=== PATIENT | female | born 1960 | race Caucasian/White ===

== ENCOUNTER 2022-07-21 13:25 | Emergency (ER) | payer BC, SELFPAY ==
[2022-07-21 13:41] VITALS: BP 150/93; PULSE 74; RESP 16; TEMP 36.6; O2SAT 99
[2022-07-21 14:00] VITALS: BP 148/61; PULSE 85; O2SAT 90
[2022-07-21 14:30] VITALS: BP 150/65
[2022-07-21 15:00] VITALS: BP 145/62; PULSE 83; RESP 18; O2SAT 96
--- NOTE | 2022-07-21 15:55 | CRLHL7_ITS ---
For Patients: As a result of the Century Cures Act, medical imaging exams and procedure reports are released immediately into your electronic medical record. You may view this report before your referring provider. If you have questions, please contact your health care provider. INDICATION: Left-sided abdominal pain COMPARISON: None TECHNIQUE: CT examination of the abdomen and pelvis was performed following the uneventful intravenous administration of 77 cc of Isovue 370. Thin section axial images were obtained from the lung bases through the pubic symphysis. Oral contrast was not administered. Please note that all CT scans at this facility use dose modulation, iterative reconstruction, and/or weight-based dosing when appropriate to reduce radiation dose to as low as reasonably achievable. FINDINGS: LUNG BASES: The lung bases as visualized appear normal.The heart size is normal at the lung bases. LIVER/BILIARY SYSTEM:The liver is normal in size and configuration. There is no focal mass and there is no intra- or extra hepatic biliary ductal dilatation.Hepatic steatosis with geographic areas of sparing. Gallbladder surgically absent. ADRENALS: Normal KIDNEYS, URETERS and BLADDER:The kidneys appear normal. No visible mass, calculus or hydronephrosis. The ureters and bladder as visualized appear normal. SPLEEN:Normal appearance. PANCREAS: Appears normal. RETROPERITONEUM and MESENTERY: There is no mass, adenopathy or aortic aneurysm. Atherosclerotic vascular calcification GASTROINTESTINAL SYSTEM: There is no evidence of diverticulitis, colitis, mechanical obstruction, or appendicitis. The small bowel as visualized appears normal.Scattered diverticulosis. Mild thickening of the rectum may be related to mild proctitis. PELVIS: No mass, adenopathy or free fluid. OSSEOUS STRUCTURES and ABDOMINAL WALL: There is an age-appropriate appearance of the osseous structures.No significant abdominal wall defect. OTHER: No free fluid or free air. IMPRESSION: Mild thickening of the rectum which may be related to proctitis. Otherwise, no specific visible etiology for pain. Please note that all CT scans at this facility use dose modulation, iterative reconstruction, and/or weight-based dosing when appropriate to reduce radiation dose to as low as reasonably achievable. Dictated by Dayne Matamoros MD @ 07/21/2022 5:31:24 PM (Electronically Signed)
[2022-07-21 16:14] LABS: Appearance Urine Clear (Clear); Bilirubin Urine Negative (Negative); Blood Urine Trace-lysed (Negative); Color Urine Yellow (Yellow); Glucose Urine Negative (Negative); Ketones Urine Negative (Negative); Leukocyte Esterase Urine Negative (Negative); Nitrite Urine Negative (Negative); Protein Urine Negative (Negative); Urobilinogen Urine 0.2 (0.2-1.0)
[2022-07-21] MEDS: KETOROLAC 15 MG/ML inj IVP (16:18)
[2022-07-21 16:28] LABS: Basophils Absolute Auto 0.04 K/uL (0.00-0.30); Basophils Percent Auto 0.4 % (0.0-3.0); Eosinophils Absolute Auto 0.03 K/uL (0.00-0.50); Eosinophils Percent Auto 0.3 % (0.0-7.0); Hematocrit 42.3 % (33.0-51.0); Hemoglobin* 14.6 gm/dL (12.0-16.0); Immature Granulocytes Abs Auto 0.02 K/uL (0.00-0.30); Lymphocytes Absolute Auto 3.31 K/uL (0.90-2.90); Lymphocytes Percent Auto 32.6 % (20-44); Mean Corpuscular HGB Conc 35 gm/dL (32-36); Mean Corpuscular Hemoglobin 31 pg (26-34); Mean Corpuscular Volume 91 fL (80-100); Monocytes Percent Auto 6.1 % (0.0-11.0); Neutrophils Absolute Auto 6.13 K/uL (1.7-7.0); Neutrophils Percent Auto 60.4 % (42.0-72.0); Platelet Count* 289 K/uL (140-440); RDW Coefficient of Variation % 12.8 % (11.5-15.5); Red Blood Count 4.65 m/uL (4.00-5.20); White Blood Count* 10.15 K/uL (4.50-11.00)
[2022-07-21 16:29] LABS: RBC Urine 0-2 (0-2); WBC Urine 0-2 (0-5)
[2022-07-21 16:33] LABS: Slide Review Reflex No
[2022-07-21 16:46] LABS: Chloride* 100 mmol/L (96-114)
[2022-07-21 16:47] LABS: Potassium* 3.9 mmol/L (3.6-5.1); Sodium* 135 mmol/L (135-149)
[2022-07-21 16:49] LABS: Creatinine* 0.6 mg/dL (0.5-1.5); Estimated Glomerular Filt Rate 101 ml/min
[2022-07-21 16:50] LABS: Alanine Aminotransferase* 20 U/L (4-35); Alkaline Phosphatase* 104 U/L (40-150); Aspartate Amino Transferase* 32 U/L (12-35); Bilirubin Direct* 0.3 mg/dL (0.0-0.5); Bilirubin Total* 0.8 mg/dL (0.1-1.5); Blood Urea Nitrogen* 15 mg/dL (7-30); Calcium* 9.6 mg/dL (8.4-10.6); Carbon Dioxide* 26 mmol/L (20-32); Glucose* 102 mg/dL (60-115); Lipase* 80 U/L (23-300); Total Protein* 8.7 g/dL (6.0-8.3)
[2022-07-21 16:57] LABS: C Reactive Protein* < 0.5 mg/dL (0.5-1.0)
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
--- NOTE | 2022-07-21 17:23 | ED.NURSE ---
Report given to APOLONIA Hollingsworth.
== END 2022-07-21 18:30 | disposition home or self-care (01) ==
PROVIDERS: Emergency Provider Emergency Medicine
DX: R10.9 Unspecified abdominal pain (principal)
CPT/HCPCS: 36415; 74177; 80048; 80076; 81001; 83690; 84484; 85025; 86140; 93005; 96374; 99284; 99285; J1885; Q9967

== ENCOUNTER 2022-07-30 21:01 | Emergency (ER) | payer BC, SELFPAY ==
[2022-07-30 21:12] VITALS: BP 167/83; PULSE 75; RESP 14; TEMP 36.5; O2SAT 98; BMI 31.3
--- NOTE | 2022-07-30 21:30 | CRLHL7_ITS ---
For Patients: As a result of the Century Cures Act, medical imaging exams and procedure reports are released immediately into your electronic medical record. You may view this report before your referring provider. If you have questions, please contact your health care provider. INDICATION: Cough. TECHNIQUE: Chest 1 views. COMPARISON: None. FINDINGS: Cardiovascular and mediastinum: Heart size and vasculature are normal in caliber and appearance. Lungs and pleural spaces: Lungs are clear. No sign of infiltrate or mass. No sign of pleural effusion. No pneumothorax. Bones and soft tissues: No significant findings. IMPRESSION: No acute or significant findings. Dictated by Matthew Zee MD @ 07/30/2022 9:57:01 PM (Electronically Signed)
--- NOTE | 2022-07-30 21:52 | ED_ITS ---
HPI - General Adult General Chief complaint: Cough Stated complaint: Cough, joint pain Time Seen by Provider: 07/30/22 21:14 History of Present Illness HPI narrative: Pt is a 62 year old woman with hypertension and GERD who comes in with a 3 day history of cough. She has only had one COVD vaccination. Pt has had no sick contacts. No fever or chills. No SOB. She is eating and drinking normally. No other significant complaints. No chest pain. Related Data Home Medications Medication Instructions Recorded Confirmed lisinopril 5 mg tablet 5 mg PO DAILY 07/21/22 07/21/22 omeprazole 20 mg capsule,delayed 20 mg PO DAILY PRN 07/21/22 07/21/22 release Previous Rx's Medication Instructions Recorded sucralfate 100 mg/mL oral 10 ml PO QID #414 mL 07/21/22 suspension (Carafate) Allergies Allergy/AdvReac Type Severity Reaction Status Date / Time ibuprofen AdvReac Mild Verified 07/21/22 13:48 Review of Systems Status of ROS: Reports: 10 or more systems reviewed and unremarkable except as noted in History and below [facility] Medical History (Updated 07/30/22 @ 21:57 by Kel Addison MD) GERD (gastroesophageal reflux disease) Hypertension Social History Smoking Status: Never smoker How often do you have a drink containing alcohol: never AUDIT-C Alcohol total score: 0 Non-prescribed substance use: denies use Exam Narrative: Exam Narrative: EXAM GENERAL: Patient appears comfortable and well. EYES: No scleral icterus. ENT: Tympanic membranes and oropharynx normal. THYROID: no thyroid nodules or thyromegaly. LYMPH: No supraclavicular or cervical lymphadenopathy. SKIN: Visible skin seen during exam normal or with benign process only. EXT: No dependent lower extremity pedal edema. HEART: Regular rate and rhythm with no murmurs, rubs, or gallops. LUNGS: Clear to auscultation bilaterally with no crackles or wheezes. ABD: Soft, non tender, non distended. PSYCH: Good eye contact, speech is not pressured. Const: Vital Signs, click to edit/add: Vital Signs - 24 hr 07/30/22 21:12 Temperature 97.7 F Pulse Rate [Pulse Oximeter] 75 Respiratory Rate 14 Blood Pressure [Ri ght Upper Arm] 167/83 H Pulse Oximetry 98 Oxygen Delivery Me thod Room Air Course Course Hospital Course: Pt seen and examined Vital Signs Vital signs: Initial Vital Signs Temperature 97.7 F 07/30/22 21:12 Temperature Source Temporal Artery Scan 07/30/22 21:12 Pulse Rate 75 07/30/22 21:12 Pulse Rhythm 07/30/22 21:12 Respiratory Rate 14 07/30/22 21:12 Blood Pressure 167/83 H 07/30/22 21:12 Blood Pressure Mean 111 07/30/22 21:12 Blood Pressure Position Supine 07/30/22 21:12 Pulse Oximetry 98 07/30/22 21:12 Oxygen Delivery Method 07/30/22 21:12 Vital Signs Temperature 97.7 F 07/30/22 21:12 Pulse Rate 75 07/30/22 21:12 Respiratory Rate 14 07/30/22 21:12 Blood Pressure 167/83 H 07/30/22 21:12 Pulse Oximetry 98 07/30/22 21:12 Oxygen Delivery Method 07/30/22 21:12 Temperature 97.7 F 07/30/22 21:12 Pulse Rate 75 07/30/22 21:12 Respiratory Rate 14 07/30/22 21:12 Blood Pressure 167/83 H 07/30/22 21:12 Pulse Oximetry 98 07/30/22 21:12 Oxygen Delivery Method 07/30/22 21:12 Medical Decision Making MDM Narrative Medical decision making narrative: Pt presents with cough and a normal chest x ray and good vital signs including oxygen saturation. Pt otherwise feeling fine. Pt not interested in symptomatic care alone any further. Will treat with Z pack as directed and albuterol as needed. COVID testing pending. Differential Diagnosis Differential Diagnosis: Asthma, bronchitis, COVID, Pneumonia, URI Discharge Plan Discharge Clinical Impression: Bronchitis Patient Disposition: Home, Self-Care Condition: Stable Instructions: Acute Bronchitis (ED) Additional Instructions: Zithromax and albuterol as needed Activity Level: No Restrictions Discharge Diet: Regular Prescriptions: No Action lisinopril 5 mg tablet 5 mg PO DAILY omeprazole 20 mg capsule,delayed release(DR/EC) 20 mg PO DAILY PRN sucralfate [Carafate] 100 mg/mL suspension 10 ml PO QID Qty: 414 2RF Rx Instructions: swish in mouth and swallow; use after food/drink Follow Up/Referrals: Provider,Not a Local [Primary Care Provider] - Stand Alone Forms: [employer] Info Instructions
[2022-07-30 22:13] LABS: SARS PCR* Negative SARS-CoV-2 (Negative)
[2022-07-30 22:46] VITALS: BP 167/83; PULSE 75; RESP 14; TEMP 36.5
== END 2022-07-30 22:47 | disposition home or self-care (01) ==
PROVIDERS: Emergency Provider Internal Medicine
DX: J40 Bronchitis, not specified as acute or chronic (principal)
CPT/HCPCS: 71045; 87635; 99283; 99284

== ENCOUNTER 2022-10-10 11:51 | Outpatient (CLI) | payer BC, SELFPAY | END 2022-10-10 11:52 | disposition home or self-care (01) | LOC: AMB 10-21 12:25 | PROVIDERS: Visit Provider Family Medicine | DX: R07.89 Other chest pain (principal) | CPT/HCPCS: A0998 ==

== ENCOUNTER 2022-10-10 11:53 | Outpatient (CLI) | payer BC, SELFPAY | END 2022-10-10 11:54 | disposition home or self-care (01) | LOC: AMB 10-21 15:19 | PROVIDERS: Visit Provider Family Medicine | DX: R20.0 Anesthesia of skin (principal) | CPT/HCPCS: A0425; A0427 ==

== ENCOUNTER 2022-10-10 12:27 | Emergency (ER) | payer BC, SELFPAY ==
[2022-10-10] VITALS (9 sets, daily range): BP systolic 122–183; BP diastolic 63–112; PULSE 66–77; RESP 22; TEMP 36.7; O2SAT 93–98; BMI 35.2
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
--- NOTE | 2022-10-10 13:16 | ED.NURSE ---
[facility] LE contacted per Pt and MD request to file report. Daughter's cell phone number: [phone] provided to LE to speak with Pt/daughter and are aware an cylinder block hole reliner will be needed.
[2022-10-10] MEDS: LORazepam 2 MG/ML inj 0.5 MG IVP (13:23)
== END 2022-10-10 16:27 | disposition home or self-care (01) ==
PROVIDERS: Emergency Provider Family Medicine
DX: F41.9 Anxiety disorder, unspecified (principal)
CPT/HCPCS: 96374; 99283; 99284; J2060

== ENCOUNTER 2023-10-31 16:07 | Emergency (ER) | payer BC, SELFPAY ==
[2023-10-31] VITALS (11 sets, daily range): BP systolic 126–170; BP diastolic 69–94; PULSE 61–72; RESP 12–15; TEMP 36.3; O2SAT 93–99; BMI 31.3
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
--- NOTE | 2023-10-31 17:19 | CRLHL7_ITS ---
For Patients: As a result of the Century Cures Act, medical imaging exams and procedure reports are released immediately into your electronic medical record. You may view this report before your referring provider. If you have questions, please contact your health care provider. INDICATION: Left-sided chest pain TECHNIQUE: Chest 2 view. Permanently recorded images are archived. COMPARISON: 07/30/2022 FINDINGS: Cardiovascular and mediastinum: Normal heart size. Mildly atherosclerotic thoracic aorta. Lungs and pleural spaces: The lungs are clear. No pleural effusion or pneumothorax. Bones and soft tissues: Cholecystectomy clips. Otherwise, unremarkable for age. IMPRESSION: No evidence of an acute pulmonary process. Dictated by Shivam Andrade MD @ 10/31/2023 6:54:42 PM (Electronically Signed)
[2023-10-31 17:57] LABS: Lactate* 1.9 mmol/L (0.5-1.9)
[2023-10-31 18:16] LABS: Albumin* 4.8 g/dL (3.3-5.0); Basophils Absolute Auto 0.03 K/uL (0.00-0.30); Basophils Percent Auto 0.3 % (0.0-3.0); Chloride* 101 mmol/L (96-114); Eosinophils Absolute Auto 0.01 K/uL (0.00-0.50); Eosinophils Percent Auto 0.1 % (0.0-7.0); Hematocrit 43.7 % (33.0-51.0); Hemoglobin* 14.5 gm/dL (12.0-16.0); Immature Granulocytes Abs Auto 0.03 K/uL (0.00-0.30); Immature Granulocytes Pct Auto 0.3 %; Lymphocytes Absolute Auto 3.43 K/uL (0.90-2.90); Lymphocytes Percent Auto 37.1 % (20-44); Mean Corpuscular HGB Conc 33 gm/dL (32-36); Mean Corpuscular Hemoglobin 31 pg (26-34); Mean Corpuscular Volume 94 fL (80-100); Monocytes Percent Auto 5.1 % (0.0-11.0); Neutrophils Absolute Auto 5.27 K/uL (1.7-7.0); Neutrophils Percent Auto 57.1 % (42.0-72.0); Platelet Count* 343 K/uL (140-440); RDW Coefficient of Variation % 12.7 % (11.5-15.5); Red Blood Count 4.67 m/uL (4.00-5.20); White Blood Count* 9.24 K/uL (4.50-11.00)
--- NOTE | 2023-10-31 18:16 | CRLHL7_ITS ---
For Patients: As a result of the Century Cures Act, medical imaging exams and procedure reports are released immediately into your electronic medical record. You may view this report before your referring provider. If you have questions, please contact your health care provider. INDICATION: Left leg pain. TECHNIQUE: Ultrasound venous duplex lower left extremity. Compression venous exam was performed using richmond-scale, color Doppler, and spectral Doppler analysis. COMPARISON: None. FINDINGS: Common Femoral Vein: Patent and compressible. Deep Femoral Vein: Patent. Greater Saphenous Vein: Patent. Superficial Femoral Vein: Patent and compressible. Popliteal Vein: Patent and compressible. Posterior Tibial Veins: Patent and compressible. Peroneal Veins: Patent and compressible. Contralateral Right Common Femoral Vein: Patent and compressible. IMPRESSION: No evidence of deep venous thrombosis in the left lower extremity. Dictated by Keegan Rios MD @ 10/31/2023 8:44:28 PM (Electronically Signed)
[2023-10-31 18:17] LABS: Potassium* 3.8 mmol/L (3.6-5.1); Sodium* 138 mmol/L (135-149)
[2023-10-31 18:19] LABS: Bilirubin Total* 0.6 mg/dL (0.1-1.5); Creatinine* 0.7 mg/dL (0.5-1.5); D Dimer Quantitative* 0.29 ug/ml (0.00-0.50); Est. Creatinine Clearance* 61.85; Estimated Glomerular Filt Rate 97 ml/min
[2023-10-31 18:20] LABS: Alanine Aminotransferase* 23 U/L (4-35); Alkaline Phosphatase* 95 U/L (40-150); Anion Gap 11 mEq/L (7-15); Aspartate Amino Transferase* 31 U/L (12-35); Blood Urea Nitrogen* 15 mg/dL (7-30); Calcium* 9.6 mg/dL (8.4-10.6); Carbon Dioxide* 26 mmol/L (20-32); Glucose* 107 mg/dL (60-115); Total Protein* 8.4 g/dL (6.0-8.3)
[2023-10-31 18:21] LABS: Slide Review Reflex No
[2023-10-31 18:23] LABS: C Reactive Protein* 0.6 mg/dL (0.5-1.0)
[2023-10-31 18:37] LABS: NT Pro B Type NatriureticPept* 29 pg/mL; Troponin I* < 0.01 ng/mL (0.01-0.04)
--- NOTE | 2023-10-31 20:09 | ED.NURSE ---
Report given to APOLONIA Armstrong.
--- NOTE | 2023-10-31 21:00 | ED.NURSE ---
used and doctor of optometry ([employer]) Sinhala speaking to go over discharge instructions. patient is having pain and wondering if able to have some for pain. Medications were sent to pharmacy to car pick up driver and understood how to take.
== END 2023-10-31 21:20 | disposition home or self-care (01) ==
PROVIDERS: Emergency Provider Family Medicine
DX: R07.89 Other chest pain (principal); H92.02 Otalgia, left ear
CPT/HCPCS: 36415; 71046; 80053; 83605; 83880; 84484; 85025; 85379; 86140; 93005; 93971; 94761; 99284; 99285

== ENCOUNTER 2024-01-18 10:58 | Emergency (ER) | payer BC, SELFPAY ==
[2024-01-18 11:22] VITALS: BP 163/80; PULSE 66; RESP 18; TEMP 36.6; O2SAT 98; BMI 25.7
[2024-01-18 12:03] LABS: Strep A DNA Probe* NOT DETECTED (Not Detectd)
[2024-01-18 12:16] LABS: PCR FLU A Negative PCR FLU A (Negative); PCR FLU B Negative PCR FLU B (Negative); PCR RSV Negative PCR RSV (Negative); SARS PCR* Negative SARS-CoV-2 (Negative)
--- NOTE | 2024-01-18 12:53 | ED_ITS ---
HPI - General Adult General Chief complaint: Cough Stated complaint: Cough / sore throat Time Seen by Provider: 01/18/24 12:36 History of Present Illness HPI narrative: This 63-year-old female comes in reporting persistent upper respiratory symptoms including cough and now has sore throat and bilateral ear pain. She does not report any fevers. She comes in with normal vital signs. She states that she has had a cough for about a month. Related Data Home Medications Medication Instructions Recorded Confirmed lisinopril 5 mg tablet 5 mg PO DAILY 07/21/22 01/18/24 omeprazole 20 mg capsule,delayed 20 mg PO DAILY PRN 07/21/22 10/31/23 release amitriptyline 25 mg tablet 25 mg PO QPM 01/18/24 01/18/24 cholecalciferol (vitamin D3) 50 50 mcg PO DAILY 01/18/24 01/18/24 mcg (2,000 unit) tablet Previous Rx's Medication Instructions Recorded omeprazole 40 mg capsule,delayed 40 mg PO DAILY #14 caps 10/31/23 release tramadol 50 mg tablet 50 mg PO QHS PRN pain #6 tabs 10/31/23 acetaminophen 300 mg-codeine 30 mg 1 tab PO Q6H PRN pain #20 tabs 01/18/24 tablet amoxicillin 500 mg capsule 500 mg PO TID 10 days #21 caps 01/18/24 Allergies Allergy/AdvReac Type Severity Reaction Status Date / Time ibuprofen AdvReac Mild Verified 01/18/24 11:26 Review of Systems Status of ROS: Reports: 10 or more systems reviewed and unremarkable except as noted in History and below Narrative: Constitutional: No fevers, no weight gain or loss. Eyes: No discharge. No vision changes. HENT: Sore throat and bilateral ear pain. Cardiovascular: No chest pain, no palpitations. Respiratory: No shortness of breath, no wheezes. She reports a cough that is worse at night. Gastrointestinal: No abdominal pain, no vomiting, no diarrhea. Genitourinary: No dysuria, no hematuria. Musculoskeletal: Normal range of motion. Skin: No rashes, no pruritis. Neurological: No dizziness, weakness, sensory change, speech change. Endo/Heme/Allergies: No bruising or bleeding. No polydipsia. Pysch: no suicidality, no anxiety, no insomnia. All other systems reviewed and are negative. PFSH PFS Medical History Closed fracture of left distal femur ?S72.402A - Unspecified fracture of lower end of left femur, initial encounter for closed fracture (ICD-10) Anxiety ?F41.9 - Anxiety disorder, unspecified (ICD-10) Tension type headache ?G44.209 - Tension-type headache, unspecified, not intractable (ICD-10) Moderate episode of recurrent major depressive disorder ?F33.1 - Major depressive disorder, recurrent, moderate (ICD-10) Myalgia ?M79.10 - Myalgia, unspecified site (ICD-10) Chronic pain syndrome ?G89.4 - Chronic pain syndrome (ICD-10) Elevated TSH ?R79.89 - Other specified abnormal findings of blood chemistry (ICD-10) Prediabetes ?R73.03 - Prediabetes (ICD-10) GERD (gastroesophageal reflux disease) ?K21.9 - Gastro-esophageal reflux disease without esophagitis (ICD-10) Hypertension ?I10 - Essential (primary) hypertension (ICD-10) Surgical History History of cholecystectomy ?Z90.49 - Acquired absence of other specified parts of digestive tract (ICD- 10) History of salpingo-oophorectomy ?Z90.79 - Acquired absence of other genital organ(s) (ICD-10) ?Z90.721 - Acquired absence of ovaries, unilateral (ICD-10) Social History Smoking Status: Never smoker How often do you have a drink containing alcohol: never AUDIT-C Alcohol total score: 0 Non-prescribed substance use: denies use Exam Narrative: Exam Narrative: Constitutional: Well-developed, well-nourished, no acute distress. HEENT: Normocephalic, atraumatic. Left tympanic membrane appears normal. Right tympanic membrane has sign of infection including dullness and bulging of the membrane. Neck: Normal range of motion. Nontender. Supple. Heart: Regular. No murmurs. Normal rate. Intact distal pulses. Lungs: Clear to auscultation. No chest discomfort. No wheezes, rhonchi, or rales. Abdomen: Normal bowel sounds. Nontender. No rebound tenderness. Genitalia: Deferred. Back: No midline tenderness. Normal range of motion. Extremities: Normal range of motion. No injury. Skin: Intact. No rash. Warm. No erythema or pallor. Neurologic: No altered sensation. No weakness. Alert and oriented. Psychiatric: No suicidality. No anxiety or depression. No insomnia. Nursing notes and vitals signs are reviewed. Const: Vital Signs, click to edit/add: Vital Signs - 24 hr 01/18/24 11:22 Temperature 97.8 F Pulse Rate [Right Pulse Oximeter] 66 Respiratory Rate 18 Blood Pressure [Ri ght Upper Arm] 163/80 H Pulse Oximetry 98 Oxygen Delivery Me thod Room Air Course Vital Signs Vital signs: Initial Vital Signs Temperature 97.8 F 01/18/24 11:22 Temperature Source Temporal Artery Scan 01/18/24 11:22 Pulse Rate 66 01/18/24 11:22 Pulse Rhythm Regular 01/18/24 11:22 Respiratory Rate 18 01/18/24 11:22 Blood Pressure 163/80 H 01/18/24 11:22 Blood Pressure Mean 107 H 01/18/24 11:22 Pulse Oximetry 98 01/18/24 11:22 Oxygen Delivery Method Room Air 01/18/24 11:22 Vital Signs Temperature 97.8 F 01/18/24 11:22 Pulse Rate 66 01/18/24 11:22 Respiratory Rate 18 01/18/24 11:22 Blood Pressure 163/80 H 01/18/24 11:22 Pulse Oximetry 98 01/18/24 11:22 Oxygen Delivery Method Room Air 01/18/24 11:22 Temperature 97.8 F 01/18/24 11:22 Pulse Rate 66 01/18/24 11:22 Respiratory Rate 18 01/18/24 11:22 Blood Pressure 163/80 H 01/18/24 11:22 Pulse Oximetry 98 01/18/24 11:22 Oxygen Delivery Method Room Air 01/18/24 11:22 Medical Decision Making MDM Narrative Medical decision making narrative: This patient comes in with upper respiratory symptoms for the past month as described above. She feels worse rate lucent leave with sore throat and ear pain. She reports severe cough that keeps her awake through much of the night. Nasal pharyngeal swab returns negative for viral infections as does her porsche pharyngeal swab for strep. On exam the patient does have an abnormal appearing right tympanic membrane. She did receive an oral dose of dexamethasone 10 mg. I provided prescriptions for amoxicillin and Tylenol 3. Lab Data Labs: Lab Results 01/18/24 Range/Units 11:30 SARS-CoV-2 (PCR) Negative SARS-CoV-2 (Negative) Influenza Type A (PCR) Negative PCR FLU A (Negative) Influenza Type B (PCR) Negative PCR FLU B (Negative) RSV (PCR) Negative PCR RSV (Negative) Group A Strep DNA NOT DETECTED (Not Detectd) Discharge Plan Discharge Clinical Impression: Otitis media Patient Disposition: Home, Self-Care Condition: Stable Additional Instructions: Take medication as prescribed. Follow up with MD return if worsening. Prescriptions: New amoxicillin 500 mg capsule 500 mg PO TID 10 Days Qty: 21 0RF acetaminophen-codeine 300-30 mg tablet 1 tab PO Q6H PRN (Reason: pain) Qty: 20 0RF No Action omeprazole 40 mg capsule,delayed release(DR/EC) 40 mg PO DAILY Qty: 14 0RF tramadol 50 mg tablet 50 mg PO QHS PRN (Reason: pain) Qty: 6 0RF amitriptyline 25 mg tablet 25 mg PO QPM cholecalciferol (vitamin D3) 50 mcg (2,000 unit) tablet 50 mcg PO DAILY lisinopril 5 mg tablet 5 mg PO DAILY omeprazole 20 mg capsule,delayed release(DR/EC) 20 mg PO DAILY PRN Follow Up/Referrals: Provider,Not a Local [Primary Care Provider] - Stand Alone Forms: [facility] Info Instructions
[2024-01-18] MEDS: dexAMETHasone 10 MG/ML inj PO (13:02)
--- NOTE | 2024-01-26 17:56 | ED.NURSE ---
Pt spoke with this author regarding Amoxicillin rx from Dr. Goldman. Rx states 10 day course, but capsules to be dispensed only 21. Per jody Moreland to call Joshricky [facility] and verbal order 9 more capsules of Amoxicillin 500mg to fulfill 3 more days. Pt updated and reinforced importance of following up in clinic if ear pain is not controlled with full 10 day course, denies further questions.
== END 2024-01-18 13:26 | disposition home or self-care (01) ==
LOC: ED 13:23
PROVIDERS: Emergency Provider Emergency Medicine Emergency Medical Services
DX: H66.91 Otitis media, unspecified, right ear (principal)
CPT/HCPCS: 87631; 87651; 99283; 99284; J1100

== ENCOUNTER 2024-01-26 18:10 | Emergency (ER) | payer BC, SELFPAY ==
[2024-01-26 18:17] VITALS: BP 157/78; PULSE 77; RESP 14; TEMP 36.4; O2SAT 98; BMI 30.3
--- NOTE | 2024-01-26 18:46 | ED_ITS ---
HPI - General Adult General Date Seen: 01/26/24 Chief complaint: Cough Stated complaint: worsening sore throat Time Seen by Provider: 01/26/24 18:39 History of Present Illness HPI narrative: History is obtained using the Persian-Monegasque iPad paper cup machine tender 63-year-old female with a past medical history of GERD, hypertension, and recent diagnosis of right otitis media presenting to the ER today for ongoing cough and ear pain. She was seen 1 week ago in the ER by Dr. Goldman for right ear pain and cough. Put on antibiotics for her otitis media. She returns to the ER today saying her cough is ongoing in her ear pain is still ongoing. Her cough has been present since all week and it has been productive of whitish sputum. She is having mild burning in her chest but no other discomfort. No hemoptysis. No swelling in her legs. Her granddaughter is also sick with a cough. No other known says sick exposures. No definite exposure to influenza or COVID. No recent travel. No abdominal pain. No vomiting or diarrhea. She is a nonsmoker. No history of lung disease. She does have a history of hypertension and was previously on lisinopril but stopped for a few months. She was restarted on lisinopril about a month or 2 ago. No other medications. Related Data Home Medications Medication Instructions Recorded Confirmed lisinopril 5 mg tablet 5 mg PO DAILY 07/21/22 01/18/24 omeprazole 20 mg capsule,delayed 20 mg PO DAILY PRN 07/21/22 10/31/23 release amitriptyline 25 mg tablet 25 mg PO QPM 01/18/24 01/18/24 cholecalciferol (vitamin D3) 50 50 mcg PO DAILY 01/18/24 01/18/24 mcg (2,000 unit) tablet Previous Rx's Medication Instructions Recorded omeprazole 40 mg capsule,delayed 40 mg PO DAILY #14 caps 10/31/23 release tramadol 50 mg tablet 50 mg PO QHS PRN pain #6 tabs 10/31/23 acetaminophen 300 mg-codeine 30 mg 1 tab PO Q6H PRN pain #20 tabs 01/18/24 tablet amoxicillin 500 mg capsule 500 mg PO TID 10 days #21 caps 01/18/24 benzonatate 100 mg capsule 100 mg PO TID PRN cough #14 caps 01/26/24 ibuprofen 600 mg tablet 600 mg PO Q8H PRN #14 tabs 01/26/24 Allergies Allergy/AdvReac Type Severity Reaction Status Date / Time ibuprofen AdvReac Mild Verified 01/18/24 11:26 [facility] Medical History Closed fracture of left distal femur ?S72.402A - Unspecified fracture of lower end of left femur, initial encounter for closed fracture (ICD-10) Anxiety ?F41.9 - Anxiety disorder, unspecified (ICD-10) Tension type headache ?G44.209 - Tension-type headache, unspecified, not intractable (ICD-10) Moderate episode of recurrent major depressive disorder ?F33.1 - Major depressive disorder, recurrent, moderate (ICD-10) Myalgia ?M79.10 - Myalgia, unspecified site (ICD-10) Chronic pain syndrome ?G89.4 - Chronic pain syndrome (ICD-10) Elevated TSH ?R79.89 - Other specified abnormal findings of blood chemistry (ICD-10) Prediabetes ?R73.03 - Prediabetes (ICD-10) GERD (gastroesophageal reflux disease) ?K21.9 - Gastro-esophageal reflux disease without esophagitis (ICD-10) Hypertension ?I10 - Essential (primary) hypertension (ICD-10) Surgical History History of cholecystectomy ?Z90.49 - Acquired absence of other specified parts of digestive tract (ICD- 10) History of salpingo-oophorectomy ?Z90.79 - Acquired absence of other genital organ(s) (ICD-10) ?Z90.721 - Acquired absence of ovaries, unilateral (ICD-10) Social History Smoking Status: Never smoker Do you use any of these nicotine containing products: None How often do you have a drink containing alcohol: never AUDIT-C Alcohol total score: 0 Non-prescribed substance use: denies use Exam Narrative: Exam Narrative: Constitutional: Appears well-developed and well-nourished. Alert. Conversant. Non toxic. HENT: Head: Atraumatic. Nose: Nose normal. Right ear: Pinna, mastoid are normal. Canal acute obscured by cerumen. I removed the cerumen using an ear curette. I am able to visualize the TM. TM is dull and retracted but not erythematous or bulging. No signs of TM perforation. No foreign body. Left ear: Pinna, mastoid, canal, TM are normal. Mouth/Throat: Oral mucosa is clear and moist. no trismus. Pharynx normal. Tonsils symmetric. No tonsillar enlargement, erythema, or exudate. Eyes: Conjunctivae normal. EOM normal. Pupils equal, round, and reactive to light. No scleral icterus. Neck: Normal range of motion. Neck supple. No tracheal deviation present. Cardiovascular: Normal rate, regular rhythm. No gallop. No friction rub. No mu rmur heard. Symmetric radial artery pulses Pulmonary/Chest: Frequent cough productive whitish sputum. Effort normal. No stridor. No respiratory distress. No wheezes. No rales. No rhonchi . No tende rness. Musculoskeletal: RUE: Normal range of motion. No tenderness. No deformity LUE: Normal range of motion. No tenderness. No deformity RLE: Normal range of motion. No edema. No tenderness. No deformity LLE: Normal range of motion. No edema. No tenderness. No deformity Lymph: No cervical adenopathy. Neurological: Alert and oriented to person, place, and time. Normal strength. CN II-VII intact. No sensory deficit. GCS eye subscore is 4. GCS verbal subscore is 5. GCS motor subscore is 6. Normal coordination Skin: Skin is warm and dry. No rash noted. No pallor. Normal capillary refill. Psychiatric: Normal mood. Normal affect. Const: Vital Signs, click to edit/add: Vital Signs - 24 hr 01/26/24 18:17 Temperature 97.6 F Pulse Rate [Pulse Oximeter] 77 Respiratory Rate 14 Blood Pressure [Ri ght Upper Arm] 157/78 H Pulse Oximetry 98 Oxygen Delivery Me thod Room Air Course Vital Signs Vital signs: Initial Vital Signs Temperature 97.6 F 01/26/24 18:17 Temperature Source Temporal Artery Scan 01/26/24 18:17 Pulse Rate 77 01/26/24 18:17 Pulse Rhythm Regular 01/26/24 18:17 Respiratory Rate 14 01/26/24 18:17 Respiratory Effort Normal, Spontaneous, Non-Labored 01/26/24 18:17 Respiratory Depth Normal 01/26/24 18:17 Respiratory Pattern Normal 01/26/24 18:17 Blood Pressure 157/78 H 01/26/24 18:17 Blood Pressure Mean 104 01/26/24 18:17 Blood Pressure Position Sitting 01/26/24 18:17 Pulse Oximetry 98 01/26/24 18:17 Oxygen Delivery Method Room Air 01/26/24 18:17 Vital Signs Temperature 97.6 F 01/26/24 18:17 Pulse Rate 77 01/26/24 18:17 Respiratory Rate 14 01/26/24 18:17 Blood Pressure 157/78 H 01/26/24 18:17 Pulse Oximetry 98 01/26/24 18:17 Oxygen Delivery Method Room Air 01/26/24 18:17 Temperature 97.6 F 01/26/24 18:17 Pulse Rate 77 01/26/24 18:17 Respiratory Rate 14 01/26/24 18:17 Blood Pressure 157/78 H 01/26/24 18:17 Pulse Oximetry 98 01/26/24 18:17 Oxygen Delivery Method Room Air 01/26/24 18:17 Medications Administered Medications: Discontinued Medications Generic Name Dose Route Start Last Admin Trade Name Freq PRN Reason Stop Dose Admin Benzonatate 100 mg 01/26/24 19:53 01/26/24 20:10 Benzonatate 100 Mg Capsule PO 01/26/24 19:54 100 mg ONCE ONE Administration Medical Decision Making MDM Narrative Medical decision making narrative: This patient presents for re-evaluation of ongoing right ear pain and ongoing productive cough after being on amoxicillin for 1 week. Patient reports viral testing was negative for influenza, coma, RSV last week. On my exam is she did have some cerumen blocking her right ear canal which I removed. The TM does appear to be retracted I suspect she probably does have a healing right otitis media. No signs of active otitis. No evidence for any other otitis externa, mastoiditis, or other complication of otitis at this time. With her ongoing cough persisting after 7 days of antibiotics, consider possible 8 typical pneumonia. Chest x-ray is fortunately negative. We will put her on a course of Azithromycin which would cover for atypical pathogens and also possible pertussis (although she has no known exposure).. There is no signs at this point of serious bacterial infection such as OM, RPA, epiglottitis, QUALITY WORKER, strep pharyngitis, pneumonia, sinusitis, meningitis, bacteremia, serious bacterial infection. There are no gastrointestinal symptoms at this point and no signs of dehydration. Close followup with primary care physician is indicated. Return to ED for fever > 103, protracted vomiting, confusion, or other worsening. [facility] prescriptions for Azithromycin. Prescriptions to her pharmacy for Tessalon and ibuprofen because he has are not stocked in [facility]. Imaging Data Chest x-ray: Attestation: I have reviewed the pertinent imaging results. My impression: No evidence for pneumonia, pneumothorax, pulmonary edema, pleural effusion. Cardiac silhouette and mediastinum are normal. Radiologist's impression: IMPRESSION: Stable and negative 2 view chest x-ray. Discharge Plan Discharge Clinical Impression: Cerumen impaction, Cough, Pharyngitis Patient Disposition: Home, Self-Care Condition: Stable Instructions: Acute Cough (ED) Additional Instructions: Please come back to the ER right away if you have worsening symptoms such as worsening cough, trouble breathing, high fever, weakness, or chest pain. If you are not better within 3-4 days, please recheck with your doctor or come back to the ER for a recheck. Use the new antibiotics treat your cough. Use the cough medicine as needed. Use ibuprofen 600 mg 3 times daily to help treat your sore throat. Prescriptions: New benzonatate 100 mg capsule 100 mg PO TID PRN (Reason: cough) Qty: 14 0RF ibuprofen 600 mg tablet 600 mg PO Q8H PRNQty: 14 0RF No Action omeprazole 40 mg capsule,delayed release(DR/EC) 40 mg PO DAILY Qty: 14 0RF tramadol 50 mg tablet 50 mg PO QHS PRN (Reason: pain) Qty: 6 0RF amitriptyline 25 mg tablet 25 mg PO QPM cholecalciferol (vitamin D3) 50 mcg (2,000 unit) tablet 50 mcg PO DAILY amoxicillin 500 mg capsule 500 mg PO TID 10 Days Qty: 21 0RF acetaminophen-codeine 300-30 mg tablet 1 tab PO Q6H PRN (Reason: pain) Qty: 20 0RF lisinopril 5 mg tablet 5 mg PO DAILY omeprazole 20 mg capsule,delayed release(DR/EC) 20 mg PO DAILY PRN Follow Up/Referrals: Provider,Not a Local [Primary Care Provider] - Stand Alone Forms: [facility] Info Instructions
--- NOTE | 2024-01-26 19:53 | XR_ITS ---
Patient: [facility] Facility:?[facility] Patient ID:?[id number] Site Patient ID:?[id number]. Site :?[id number] Study:?XRay-Chest 2V-01/26/2024 8:14:40 PM Ordering Physician:JOÃO Final Report: INDICATION: Productive cough. TECHNIQUE: PA and lateral chest x-ray. COMPARISON: October 31, 2023. FINDINGS: Clear lungs. Normal heart size and pulmonary vascularity. Normal included skeleton. Surgical clips right upper quadrant. IMPRESSION: Stable and negative 2 view chest x-ray. Dictated by Brenton Vázquez MD @ 01/26/2024 8:56:43 PM Signed by:?Brenton Vázquez MD @01/26/2024 8:56:43 PM (Electronic Signature)
[2024-01-26] MEDS: BENZONATATE 100 MG CAPSULE PO (20:10)
== END 2024-01-26 21:25 | disposition home or self-care (01) ==
PROVIDERS: Emergency Provider Emergency Medicine
DX: R05.9 Cough, unspecified (principal); J02.9 Acute pharyngitis, unspecified; H61.21 Impacted cerumen, right ear
CPT/HCPCS: 69209; 71046; 99283; 99284; A9270

== ENCOUNTER 2025-08-08 10:29 | Emergency (ER) | payer OTHER, SELFPAY ==
--- OUTSIDE RECORDS SUMMARY | 2025-08-08 10:40 | XMS_ITS | Clinical Summary ---
Author Organization [facility] Address [address] [place] [id number] Care Team Providers Care Business Development Engineer Name Role Phone Mariusz Luevano MD Primary Care Provider Allergies No known active allergies Medications methylPREDNISol one (MEDROL DOSEPAK) 4 mg tabletIndicatio ns:Bronchospasm Take by mouth as instructed per packaging. 21 Tablet Active albuterol HFA (PRO-AIR; VENTOLIN; PROVENTIL) 90 mcg/actuation inhalerIndicati ons:Bronchospas m Inhale 1-2 Puffs by mouth every 4 hours if needed for Shortness of Breath 2nd choice. 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 Gender Identity Not on file Sexual Orientation Not on file Obstetrics History Last Filed Vital Signs Vital Sign Reading Time Taken Comments Blood Pressure 172/89 12/06/2021 1:19 PM FLIGHT TOWER DISPATCHER Pulse 80 12/06/2021 1:19 PM FLIGHT TOWER DISPATCHER Temperature 36.3 C (97.4 F) 12/06/2021 1:19 PM FLIGHT TOWER DISPATCHER Respiratory Rate 20 12/06/2021 1:19 PM FLIGHT TOWER DISPATCHER Oxygen Saturation 98% 12/06/2021 1:19 PM FLIGHT TOWER DISPATCHER Inhaled Oxygen Concentration - - Weight 68.9 kg (152 lb) 12/06/2021 1:19 PM FLIGHT TOWER DISPATCHER Height 160 cm (5' 3) 12/06/2021 1:19 PM FLIGHT TOWER DISPATCHER Body Mass Index 26.93 12/06/2021 1:19 PM FLIGHT TOWER DISPATCHER Plan of Treatment Not on file Insurance [facility] Care Teams Business Development Engineer Relationship Specialty Start Date End Date Mariusz Luevano MD PCP - General Internal Medicine 12/06/21
--- OUTSIDE RECORDS SUMMARY | 2025-08-08 10:40 | XMS_ITS | Encounter Summary ---
Author Organization [facility] Address [address] [place] [address] Care Team Providers Care Disc Inspector Name Role Phone Mariusz Luevano MD Primary Care Provider [phone] Encounter Details Date Type Department Care Team (Late st Contact Info) Description 02/15/2013 Home Care, [facility] [address] [place] [address], [address] [place] [address] Fiona Mullins I Social History Tobacco Use Types Packs/Day Years Used Date Smoking Tobacco: Never Smokeless Tobacco: Never Alcohol Use Standard Drinks/Week Comments No 0 (1 standard drink = 0.6 oz pur e alcohol) Comments Unknown Sex and Gender Information Value Date Recorded Sex Assigned at Not on file 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 [facility] on second visit attempt A: Per EDGE POLISHER pt is being seen in outpt tx R: Discharge from OT. Fiona Mullins OTR/L documented in this encounter Plan of Treatment Not on file documented as of this encounter Visit Diagnoses Not on filedocumented in this encounter Care Teams Disc Inspector Relationship Specialty Start Date End Date Mariusz Luevano MD PCP - General Internal Medicine 05/10/25 documented as of this encounter
--- OUTSIDE RECORDS SUMMARY | 2025-08-08 10:40 | XMS_ITS | Encounter Summary ---
Author Organization [facility] Address [address] [place] [address] Care Team Providers Care Bioinformatics Scientist Name Role Phone Mariusz Luevano MD Primary Care Provider [phone] Encounter Details Date Type Department Care Team (Late st Contact Info) Description 03/20/2013 Scanned History External to Transferred Record, Provider [facility] Social History Tobacco Use Types Packs/Day Years Used Date Smoking Tobacco: Never Smokeless Tobacco: Never Alcohol Use Standard Drinks/Week Comments No 0 (1 standard drink = 0.6 oz pur e alcohol) Comments Unknown Sex and Gender Information Value Date Recorded Sex Assigned at Not on file 

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
--- OUTSIDE RECORDS SUMMARY | 2025-08-08 10:40 | XMS_ITS | Clinical Summary ---
Author Organization [facility] Address [address] [place] [address]. [place] [address] Care Team Providers Care Macaroni Maker Name Role Phone Mariusz Luevano MD Primary Care Provider Mecca Claudio MD Unavailable Bairon Sorensen MD Unavailable Tona Suazo MD Unavailable [phone] Charlotte Watkins MD Unavailable [phone] Shannan Felton MD Unavailable [phone] Kylee Paece MD Unavailable Celia Cali MD Unavailable Sharad Pham MD Unavailable Jae Medley MD Unavailable Allergies Active Allergy Reactions Criticality Noted Date Comments Duloxetine Low 08/07/2018 Heart palpitations (not sure if due to medicine or anxiety) Ibuprofen 11/07/2014 Upset stomach Other reaction(s): GI intolerance Upset stomach Medications acetaminophen (TYLENOL) 500 MG tablet Take 500 mg by mouth Active albuterol (PROAIR HFA/PROVENTIL HFA/VENTOLIN HFA) 108 (90 Base) MCG/ACT inhaler 1 Active montelukast (SINGULAIR) 10 MG tabletIndication s:Post-viral cough syndrome Take 1 tablet (10 mg) by mouth at bedtime for 30 days 30 tablet 4 Active lisinopril (ZESTRIL) 5 MG tabletIndication s:Benign essential hypertension Take 1 tablet (5 mg) by mouth daily. For additional refills, please schedule a follow-up appointment at [phone], annual appt due 90 tablet 5 Active gabapentin (NEURONTIN) 300 MG capsuleIndicatio ns:Neuropathic pain,RSD (reflex sympathetic dystrophy) Take 1 capsule (300 mg) by mouth 2 times daily. 60 capsule 2 5 Active amitriptyline (ELAVIL) 25 MG tablet Take 1 tablet (25 mg) by mouth at bedtime. 90 tablet 5 Active carbamide peroxide (DEBROX) 6.5 % otic solutionIndicati ons:Impacted cerumen of right ear Place 5 drops into the right ear 2 times daily. 15 mL 1 5 Active lidocaine (LIDODERM) 5 % patchIndications :Neuropathic pain Place 1 patch onto the skin every 24 hours. To prevent lidocaine toxicity, patient should be patch free for 12 hrs daily. 30 patch 1 5 Active omeprazole (PRILOSEC) [address] capsuleIndicatio ns:Gastroesophag eal reflux disease without esophagitis Take 1 capsule (40 mg) by mouth daily. 90 capsule 1 5 Active benzonatate (TESSALON) 100 MG capsuleIndicatio ns:Subacute cough Take 1 capsule (100 mg) by mouth 3 times daily as needed for cough. 50 capsule 5 Active amoxicillin-clav ulanate (AUGMENTIN) 875-125 MG tabletIndication s:Acute non-recurrent maxillary sinusitis Take 1 tablet by mouth 2 times daily. 20 tablet 5 Active Vitamin D3 (CHOLECALCIFEROL ) 25 mcg (1000 units) tabletIndication s:Vitamin D deficiency Take 1 tablet (25 mcg) by mouth daily. 90 tablet 3 5 Active Hospital, Clinic, or Other Facility Administered Medication Ordered Dose Route Frequency Start Date End Date Status benzocaine-menthol (CEPACOL) 15-3.6 MG lozenge 1 lozengeIndications:Post-viral cough syndrome 1 lozenge BU ONCE 02/07/2024 Active Active Problems Problem Noted Date Diagnosed Date Subacute cough 01/08/2025 Acute non-recurrent maxillary sinusitis 01/09/20 Assessment & Plan (01/08/2025 6:21 PM CDT): - Start on Augmentin (antibiiotic) twice a day for 10 days for sinusitis. - May take benzonatate for coughs as needed. - Stay hydrated. Elevated TSH 01/08/2025 Assessment & Plan (01/08/2025 6:24 PM CDT): - Recheck of TSH with reflex. Asymptomatic. Screening for diabetes mellitus 01/08/2025 Assessment & Plan (01/08/2025 6:25 PM CDT): - Check A1c lab. CARDIOVASCULAR SCREENING; LDL GOAL LESS THAN 130 01/08/2025 Assessment & Plan (01/08/2025 6:23 PM CDT): - Check lipid and CMP. Neuropathic pain 01/08/2025 Assessment & Plan (01/08/2025 6:25 PM CDT): - Restart amitriptyline 25mg at bedtime and gabapentin 300mg BID. Benign essential hypertension 01/08/2025 Assessment & Plan (01/08/2025 6:23 PM CDT): BP is 143/80 today. Patient had run out of lisinopril. - Restart lisinopril 5mg daily. - Recheck CMP. Vitamin D deficiency 01/08/2025 Assessment & Plan (01/08/2025 6:25 PM CDT): - Recheck vitamin D level. Impacted cerumen of right ear 01/08/2025 Assessment & Plan (01/08/2025 6:24 PM CDT): - Patient to use debrox to right ear. Gastroesophageal reflux disease without esophagi tis 01/08/2025 Assessment & Plan (01/08/2025 6:24 PM CDT): - Refilling omeprazole. Musculoskeletal symptoms referable to limbs 04/2024 Neck pain 02/09/2019 Chronic left-sided back pain 02/09/2019 Anxiety 08/06/2014 Overactive bladder 08/06/2014 Sympathetic pain left leg 02/14/2014 Lightheadedness 11/02/2013 Atypical chest pain Overview (06/27/2013): Problem list name updated by automated process. Provider to review and confirm Imo Update utility Chronic pain syndrome Depressive disorder, not elsewhere classified Episodic tension type headache Myalgia and myositis Overview (07/25/2015): Problem list name updated by automated process. Provider to review Obesity Overview (07/25/2015): Problem list name updated by automated process. Provider to review Abdominal or pelvic swelling , mass or lump, unspecified site Resolved Problems Problem Noted Date Diagnosed Date Resolved Date Chronic pain of right knee 06/24/2020 1 11/30/2019 Pain in joint, ankle and foot 07/07/2011 10/11/2011 Plantar fascial fibromatosis 07/07/2011 10/11/2011 DYSPARENUNIA 02/19/2009 07/21/2009 Neck pain 01/29/2009 07/21/2009 Immunizations Immunization Administration Dates Next Due Influenza (H1N1) 12/01/2009 Influenza (IIV3) PF 11/07/2012, 0,09/13/2008,2006 Influenza Vaccine >6 months,quad, PF 08/07/2018 Mantoux Tuberculin Skin Test 01/01/2008 TDAP Vaccine (Boostrix) 02/11/2017 Td (Adult), Adsorbed 08/09/2001 Family History Medical History Relation Comments Cancer Mother Cancer - colorectal No family hx of Diabetes No family hx of Glaucoma No family hx of Macular Degeneration No family hx of Neurologic Disorder No family hx of Relation Status Comments Father Alive Mother Alive Social History Tobacco Use Types Packs/Day Years Used Date Smoking Tobacco: Never Smokeless Tobacco: Never Tobacco Cessation:Counseling Given: No Alcohol Use Standard Drinks/Week Comments No 0 [...] on file Legal Sex Female 4:18 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 Gender Identity Not on file Sexual Orientation Not on file Last Filed Vital Signs Vital Sign Reading Time Taken Comments Blood Pressure 143/80 01/07/2025 9:38 AM CDT Pulse 63 01/07/2025 9:35 AM CDT Temperature 36.8 C (98.2 F) 01/07/2025 9:35 AM CDT Respiratory Rate 18 01/07/2025 9:35 AM CDT Oxygen Saturation 98% 01/07/2025 9:35 AM CDT Inhaled Oxygen Concentration - - Weight 68.7 kg (151 lb 6.4 oz) 01/07/2025 9:35 A M CDT Height 149.9 cm (4' 11) 01/07/2025 9:35 AM CDT Body Mass Index 30.58 01/07/2025 9:35 AM CDT Plan of Treatment Health Maintenance Due Date Last Done Comments ADVANCE CARE PLANNING 1960 ANNUAL REVIEW OF HM ORDERS 1960 CT COLONOGRAPHY 1960 DEXA 1960 FIT 1960 FLEX SIG 1960 sDNA (Cologuard) 1960 HIV SCREENING 1975 PNEUMOCOCCAL VACCINE 50+ YEARS (1 of 1 - PCV) 2010 ZOSTER VACCINE (1 of 2) 2010 PHQ-9 03/20/2019 12/21/2018 MAMMO SCREENING 05/29/2021 05/29/2020, 04/2 03/2017, 12/24/2013, Additional history exists PHQ-2 (once per calendar year) 2024 02/07/2024, 02/03/2022, 06/20/2020, Additional history exists FALL RISK ASSESSMENT 2025 MEDICARE ANNUAL WELLNESS VISIT 2025 07/17/2018, 02/11/2017 COVID-19 VACCINE ( - season) 2025 INFLUENZA VACCINE (#1) 2025 8, 11/07/2012, 12/01/2009, Additional history exists BMP 01/07/2026 01/07/2025, 10/24, 12/01/2021, Additional history exists DTAP/TDAP/TD VACCINE (2 - Td or Tdap) 02/11/2027 02/11/2017, 08/09/2001 DIABETES SCREENING 01/08/2028 01/07/2025, 0 01/07/2025, 11/08/2023, Additional history exists LIPID 01/07/2030 01/07/2025, 12/22, 05/20/2020, Additional history exists COLONOSCOPY 02/27/2031 02/27/2021, 05/0 04/2021, 04/30/2014, Additional history exists COLORECTAL CANCER SCREENING 02/27/2031 RSV VACCINE (1 - 1-dose 75+ series) 2035 HEPATITIS C SCREENING Completed 10/29/2008 PAP Discontinued 08/06/2014, 07/24, 08/06/2014, Additional history exists HPV VACCINE (No Doses Required) Completed MENINGITIS VACCINE Aged Out No longer eligible based on patient's age to complete this topic Procedures Procedure Name Priority Date/Time Associated Diagnosis Comments LIPID REFLEX TO DIRECT LDL PANEL Routine 01/07/2025 11:02 AM CDT CARDIOVASCULAR SCREENING; LDL GOAL LESS THAN 130 COMPREHENSIVE METABOLIC PANEL Routine 01/07/2025 11:02 AM CDT CARDIOVASCULAR SCREENING; LDL GOAL LESS THAN 130 COLONOSCOPY Routine 02/27/2021 9:56 AM CDT MA SCREENING BILATERAL W/ EVANGELIST Routine 05/29/2020 11:35 AM CDT Special screening for malignant neoplasms, colon Encounter for screening mammogram for breast cancer HC CERV/VAG CANC SCRN,PELV/BREAST EXAM Routine 08/06/2014 2:06 PM CDT Encounter for routine gynecological examination Screening for malignant neoplasm of cervix HEPATITIS C ANTIBODY Routine 10/29/2008 5:15 PM GEOSCIENCES PROFESSOR from Last 3 Months or Most Recently Relevant to Health Maintenance Results * (ABNORMAL) Lipid panel reflex to direct LDL Non-fasting (01/07/2025 11:02 AM CDT) Cholesterol 209(H) <200 mg/dL 01/07/2025 11:29 AM CDT [facility] Triglycerides 131 <150 mg/dL 01/07/2025 11:29 AM CDT [facility] Direct Measure HDL 52 >=50 mg/dL 01/07/2025 11:29 AM CDT [facility] LDL Cholesterol Calculated 131(H) <100 mg/dL 01/07/2025 11:29 AM T [facility] Non HDL Cholesterol 157(H) <130 mg/dL 01/07/2025 11:29 AM T [facility] Patient Fasting > 8hrs? Yes 01/07/2025 11:29 AM T [facility] Blood STRUCTURE OF LEFT UPPER LIMB / Unknown Venipuncture / Unknown 01/07/2025 11:02 AM CDT 01/07/2025 11:02 AM CDT Narrative [facility] - 01/07/2025 11:29 AM CDT Cholesterol Desirable: < 200 mg/dL Borderline High: 200 - 239 mg/dL High: >= 240 mg/dL Triglycerides Normal: < 150 mg/dL Borderline High: 150 - 199 mg/dL High: 200-499 mg/dL Very High: >= 500 mg/dL Direct Measure HDL Female: >= 50 mg/dL Male: >= 40 mg/dL LDL Cholesterol Desirable: < 100 mg/dL Above Desirable: 100 - 129 mg/dL Borderline High: 130 - 159 mg/dL High: 160 - 189 mg/dL Very High: >= 190 mg/dL Non HDL Cholesterol Desirable: < 130 mg/dL Above Desirable: 130 - 159 mg/dL Borderline High: 160 - 189 mg/dL High: 190 - 219 mg/dL Very High: >= 220 mg/dL us Jae Medley MD LAB - BLOOD ORDERABL ES Final Result [facility] [place] [address] [facility] 1st [place] [address] * Comprehensive metabolic panel (BMP + Alb, Alk Phos, ALT, AST, Total. Bili, TP) (01/07/2025 11:02 AMCDT) Sodium 140 135 - 145 mmol/L 01/07/2025 11:29 AM CDT [facility] Potassium 4.2 3.4 - 5.3 mmol/L 01/07/2025 11:29 AM CDT [facility] Carbon Dioxide (CO2) 27 22 - 29 mmol/L 01/07/2025 11:29 AM T [facility] Anion Gap 11 7 - 15 mmol/L 01/07/2025 11:29 AM CDT [facility] Urea Nitrogen 17.0 8.0 - 23.0 mg/dL 01/07/2025 11:29 AM T [facility] Creatinine 0.76 0.51 - 0.95 mg/dL 01/07/2025 11:29 AM CDT [facility] GFR Estimate 87 >60 mL/min/1.7 3m2 01/07/2025 11:29 AM T [facility] Comment:eGFR calculated usin 2020 CKD-EPI equation. Calcium 9.8 8.8 - 10.4 mg/dL 01/07/2025 11:29 AM T [facility] Chloride 102 98 - 107 mmol/L 01/07/2025 11:29 AM T [facility] Glucose 98 70 - 99 mg/dL 01/07/2025 11:29 AM CDT [facility] Alkaline Phosphatase 88 40 - 150 U/L 01/07/2025 11:29 AM CDT [facility] AST 21 0 - 45 U/L 01/07/2025 11:29 AM CDT [facility] ALT 15 0 - 50 U/L 01/07/2025 11:29 AM CDT [facility] Protein Total 7.6 6.4 - 8.3 g/dL 01/07/2025 11:29 AM CDT [facility] Albumin 4.4 3.5 - 5.2 g/dL 01/07/2025 11:29 AM CDT [facility] Bilirubin Total 0.4 <=1.2 mg/dL 01/07/2025 11:29 AM CDT [facility] Patient Fasting > 8hrs? Yes 01/07/2025 11:29 AM CDT [facility] Blood STRUCTURE OF LEFT UPPER LIMB / Unknown Venipuncture / Unknown 01/07/2025 11:02 AM CDT 01/07/2025 11:02 AM CDT us Jae Medley MD LAB - BLOOD ORDERABL ES Final Result Performing Organization Address City/State/[facility] Co de Phone Number [facility] Clinics and Surgery [address] 1st [place] [address] * COLONOSCOPY (02/27/2021 9:56 AM CDT) [facility] COLONOSCOPY [facility] [address] [place] [address] [phone] Endoscopy Department Patient Name: Yolanda Tenorio Procedure Date: 02/27/2021 9:56 AM Date of : 1960 Admit Type: Outpatient Age: 60 Room: [facility] Gender: Female Note Status: Finalized Attending MD: Jerel Luis , Goldy for the Cause: Time out was completed. Total Sedation Time: Procedure: Colonoscopy Indications: Screening for colorectal malignant neoplasm Providers: Jerel Luis, Cyndy Charles RN Patient Profile: This is a 60 year old female who present for colon cancer screening. No family history of colon cancer. Non smoker. Asymptomatic. Referring MD: Mariusz Luevano MD Medicines: Midazolam 2 mg IV, Fentanyl 100 micrograms IV Complications: No immediate complications. Procedure: Pre-Anesthesia Assessment: - See H&P in [facility]. After obtaining informed consent, the colonoscope was passed under direct vision. Throughout the procedure, the patient's blood pressure, pulse, and oxygen saturations were monitored continuously. The Colonoscope was introduced through the anus and advanced to the terminal ileum. The colonoscopy was performed without difficulty. The patient tolerated the procedure well. The quality of the bowel preparation was evaluated using the BBPS (Charlotte Bowel Preparation Scale) with scores of: Right Colon = 3, Transverse Colon = 3 and Left Colon = 3 (entire mucosa seen well with no residual staining, small fragments of stool or opaque liquid). The total BBPS score equals 9. Findings: The perianal and digital rectal examinations were normal. A 1 mm polyp was found in the recto-sigmoid colon. The polyp was sessile. The polyp was removed with a jumbo cold forceps. Resection and retrieval were complete. Retroflexion in the right colon was performed. The terminal ileum appeared normal. The exam was otherwise without abnormality on direct and retroflexion views. Moderate Sedation: Moderate (conscious) sedation was administered by the endoscopy nurse and supervised by the endoscopist. The following parameters were monitored: oxygen saturation, heart rate, blood pressure, and response to care. Total physician intraservice time was 18 minutes. Impression: One small polyp resected during today's exam. - One 1 mm polyp at the recto-sigmoid colon, removed with a jumbo cold forceps. Resected and retrieved. - The examined portion of the ileum was normal. - The examination was otherwise normal on direct and retroflexion views. Recommendation: - Discharge patient to home (with escort). - Resume previous diet. - Continue present medications. - Await pathology results. - Repeat colonoscopy for surveillance based on pathology results. - Return to referring physician as previously scheduled. Electronically signed by: Jerel Luis MD ____ Jerel Luis, 02/27/2021 10:55:20 AM I was physically present for the entire viewing portion of the exam. Signature of teaching physician Jerel Luis Number of Addenda: 0 Note Initiated On: 02/27/2021 9:56 AM Scope In: Scope Out: RADIOLOGY RESULTS 02/27/2021 9:56 AM CDT Mariusz Luevano MD PROCEDURES Final Result RADIOLOGY RESULTS * MA Screen Bilateral w/Evangelist (05/29/2020 11:35 AM CDT) Anatomical Region Laterality Modality Breast Bilateral Mammography Impressions 05/30/2020 2:19 PM CDT IMPRESSION: BI-RADS CATEGORY: 1 - NEGATIVE. RECOMMENDED FOLLOW-UP: Annual Mammography Results to be sent to the patient. I have personally reviewed the examination and initial interpretation and I agree with the findings. LOU PRITCHETT MD Narrative 05/30/2020 2:19 PM CDT Examination: Bilateral digital screening mammography and bilateral digital tomosynthesis with computer aided detection. Comparison: Diagnostic bilateral mammogram 02/16/2017, screening mammogram 12/24/2013, 11/03/2010 History/family history: No symptoms, routine screening. Technique: Tomosynthesis performed. BREAST DENSITY: Scattered fibroglandular densities. COMMENTS: There has been no significant change. No suspicious finding. Procedure Note Lou Pritchett MD - 05/30/2020 Examination: Bilateral digital screening mammography and bilateral digital tomosynthesis with computer aided detection. Comparison: Diagnostic bilateral mammogram 02/16/2017, screening mammogram 12/24/2013, 11/03/2010 History/family history: No symptoms, routine screening. Technique: Tomosynthesis performed. BREAST DENSITY: Scattered fibroglandular densities. COMMENTS: There has been no significant change. No suspicious finding. IMPRESSION: BI-RADS CATEGORY: 1 - NEGATIVE. RECOMMENDED FOLLOW-UP: Annual Mammography Results to be sent to the patient. I have personally reviewed the examination and initial interpretation and I agree with the findings. LOU PRITCHETT MD us Mariusz Luevano MD IM MAMMOGRAPHY ORDERABLES F inal Result * PAP imaged thin layer screen [[id number]] (08/06/2014 12:00 AM CDT) PAP NIL COPATH Copath Report Patient Name: YOLANDA ROBERTS MR#: [id number] Specimen #: [id number] Collected: 08/06/2014 Received: 08/07/2014 Reported: 08/08/2014 14:11 Ordering Phy(s): OLIMPIA BLAND SPECIMEN/STAIN PROCESS: Pap imaged thin layer prep screening (Surepath, FocalPoint with guided screening) Pap-Cyto x 1, Reflex HPV if NIL/ASCUS/LSIL x 1 SOURCE: Cervical, endocervical Pap imaged thin layer prep screening (Surepath, FocalPoint with guided screening) SPECIMEN ADEQUACY: Satisfactory for evaluation. -Transformation zone component present. CYTOLOGIC INTERPRETATION: Negative for Intraepithelial Lesion or Malignancy Electronically signed out by: Lesli Mccormick Processed and screened at [facility] CLINICAL HISTORY: Post Menopausal, Previous normal pap Date of Last Pap: 06/19/10, Papanicolaou Test Limitations: Cervical cytology is a screening test with limited sensitivity; regular screening is critical for cancer prevention; Pap tests are primarily effective for the diagnosis/preventi on of squamous cell carcinoma, not adenocarcinomas or other cancers. TESTING LAB LOCATION: [facility], [address] [address] COLLECTION SITE: Client: [facility] Location: [facility] (B) COPATH Cytologic material (specimen) 08/06/2014 08/07/2014 10:27 AM CDT us Olimpia Bland MD LAB - OPTIME CLINICAL SPE CIMEN Final Result COPATH * Hepatitis C antibody (10/29/2008 5:15 PM GEOSCIENCES PROFESSOR) Hepatitis C Antibody Negative NEG MISYS 10/29/2008 5:15 PM GEOSCIENCES PROFESSOR 10/29/2008 5:06 PM GEOSCIENCES PROFESSOR us Michele Kirk MD LAB - BLOOD ORDERABLES Final Result MISYS from Last 3 Months or Most Recently Relevant to Health Maintenance Insurance [facility] MEDICARE [place] Care Teams Macaroni Maker Relationship Specialty Start Date End Date Mariusz Luevano MD [address] [place] [id number] PCP - General Internal Medicine 08/17/11 Mecca Claudio MD [address] [place] [address] [phone] 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 06/04/20 Bairon Sorensen MD [address] [place] [address] [phone] Internal Medicine-Hematology & Oncology 06/24/20 Tona Suazo MD [address] [place] [phone] Anesthesiology 07/03/20 Charlotte Watkins MD [address] [place] [address] Ophthalmology 01/27/21 Shannan Felton MD [address] [place] [address] Ophthalmology 01/30/21 Kylee Peace MD [address] [place] [address] Otolaryngology 12/01/21 Celia Cali MD [address] [place] [address] Endocrinology, Diabetes, and Metabolism 12/21/21 Sharad Pham MD [address] [place] [address] [facility]- [address]th [place] [address] Resident Internal Medicine 02/01/24 Jae Medley MD [address] [place] [address] Primary Care Clinic- 4th [place] [address] Assigned PCP 05/15/25
--- OUTSIDE RECORDS SUMMARY | 2025-08-08 10:40 | XMS_ITS | Encounter Summary ---
Author Organization [facility] [address] [place] [address] Care Team Providers Care Residential Framing Carpenter Name Role Phone Mariusz Luevano MD Primary Care Provider [phone] Encounter Details Date Type Department Care Team (Late st Contact Info) Description 12/21/[address] [facility] Orthoped[facility] [address] [place] [phone] Noe Jurado MD [address] [address] REFERRAL FORM Social History Tobacco Use Types Packs/Day Years Used Date Smoking Tobacco: Never Smokeless Tobacco: Never Alcohol Use Standard Drinks/Week Comments No 0 (1 standard drink = 0.6 oz pur e alcohol) Comments Unknown Sex and Gender Information Value Date Recorded Sex Assigned at Not on file Legal Sex Female 9:02 AM BAKER PIE Gender Identity Not on file Sexual Orientation Not on file documented as of this encounter Progress Notes * Noe Jurado MD - 12/21/2012 12:00 AM CST R PIE documented in this encounter Plan of Treatment Not on file documented as of this encounter Visit Diagnoses Not on filedocumented in this encounter Care Teams Residential Framing Carpenter Relationship Specialty Start Date End Date Mariusz Luevano MD PCP - General Internal Medicine 05/10/25 documented as of this encounter
--- OUTSIDE RECORDS SUMMARY | 2025-08-08 10:40 | XMS_ITS | Encounter Summary ---
Author Organization [facility] [address] [place] [address] Care Team Providers Care Supervisor Publications Name Role Phone Mariusz Luevano MD Primary Care Provider [phone] Encounter Details Date Type Department Care Team (Late st Contact Info) Description 12/14/2012 Correspondence [facility] Orthoped[facility] [address] [place] [address] Noe Jurado MD [address], [place] [address] REFERRAL FORM Social History Tobacco Use Types Packs/Day Years Used Date Smoking Tobacco: Never Smokeless Tobacco: Never Alcohol Use Standard Drinks/Week Comments No 0 (1 standard drink = 0.6 oz pur e alcohol) Comments Unknown Sex and Gender Information Value Date Recorded Sex Assigned at Not on file 

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
--- OUTSIDE RECORDS SUMMARY | 2025-08-08 10:40 | XMS_ITS | Encounter Summary ---
Author Organization [facility] Address [address] [place] [address] Care Team Providers Care Compounder Name Role Phone Mariusz Luevano MD Primary Care Provider + [phone] Encounter Details Date Type Department Care Team (Late st Contact Info) Description 02/15/2013 Home Care, [facility] [address] [place] [address], [address] [place] [address] Lesa Arizmendi RN [address] [place] [phone] Social History Tobacco Use Types Packs/Day Years Used Date Smoking Tobacco: Never Smokeless Tobacco: Never Alcohol Use Standard Drinks/Week Comments No 0 (1 standard drink = 0.6 oz pur e alcohol) Comments Unknown Sex and Gender Information Value Date Recorded Sex Assigned at Not on file 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 B - Client was being seen by SN for med manage and pain management. A - Client met all nursing goals. Client is no longer homebound. I received a message that clients insurance is no longer going to pay for services as the client is no longer home bound. I did reach the client today with the help of the lapping machine operator from the language line, and discussed this issue with the client and she completely understands and agrees that she no longer needs services. R - Discharge from SN services. JFoxRN documented in this encounter Plan of Treatment Not on file documented as of this encounter Visit Diagnoses Not on filedocumented in this encounter Care Teams Compounder Relationship Specialty Start Date End Date Mariusz Luevano MD PCP - General Internal Medicine 05/10/25 documented as of this encounter
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
--- OUTSIDE RECORDS SUMMARY | 2025-08-08 10:41 | XMS_ITS | Encounter Summary ---
Author Organization [facility] [address] [place] [address] Care Team Providers Care Oven Operator Automatic Name Role Phone Mariusz Luevano MD Primary Care Provider [phone] Encounter Details Date Type Department Care Team (Late st Contact Info) Description 12/07/2012 Correspondence [facility] [address] [place] [id number] Erika Weber APRN, CNP [address] [place] [address] [phone] REFERRAL FORM Social History Tobacco Use Types Packs/Day Years Used Date Smoking Tobacco: Never Assessed Alcohol Use Standard Drinks/Week Comments No 0 (1 standard drink = 0.6 oz pur e alcohol) Comments Unknown Sex and Gender Information Value Date Recorded Sex Assigned at Not on file 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
--- OUTSIDE RECORDS SUMMARY | 2025-08-08 10:41 | XMS_ITS | Encounter Summary ---
Author Organization [facility] [address] [place] [address] Care Team Providers Care Calculator Operator Name Role Phone Mariusz Luevano MD Primary Care Provider [phone] Encounter Details Date Type Department Care Team (Late st Contact Info) Description 01/16/2013 Correspondence [facility] [address] [place] [address] Noe Jurado MD [address], [place] [address] REFERRAL FORM Social History Tobacco Use Types Packs/Day Years Used Date Smoking Tobacco: Never Smokeless Tobacco: Never Alcohol Use Standard Drinks/Week Comments No 0 (1 standard drink = 0.6 oz pur e alcohol) Comments Unknown Sex and Gender Information Value Date Recorded Sex Assigned at Not on file Legal Sex Female 

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
--- OUTSIDE RECORDS SUMMARY | 2025-08-08 10:41 | XMS_ITS | Encounter Summary ---
Author Organization [place] Address [facility] [place] [address] Care Team Providers Care Sandwich Counter Attendant Name Role Phone Mariusz Luevano MD Primary Care Provider Kaleigh Cruz RN Unavailable Unavail able Manuel Peterson MD Unavailable [phone] Mary Oconnell RN Unavailable [phone] Mariusz Luevano MD Unavailable [phone] Mecca Claudio MD Unavailable Bairon Sorensen MD Unavailable Tona Suazo MD Unavailable [phone] Bairon Sorensen MD Unavailable Charlotte Watkins MD Unavailable [phone] Shannan Felton MD Unavailable Mariusz Luevano MD Unavailable Shannan Felton MD Unavailable Mariusz Luevano MD Unavailable Mariusz Luevano MD Unavailable Kylee Peace MD Unavailable Celia Cali MD Unavailable Celia Cali MD Unavailable Sharad Pham MD Unavailable Sharad Pham MD Unavailable Jae Medley MD Unavailable + [phone] Encounter Details Date Type Department Care Team (Late st Contact Info) Description 03/13/2013 PRE VISIT Physical Medicine and Rehabilitation Clinic [facility] 1st Floor, Clinic [address] [place] [phone] Estela Hines, DIRECTOR OF COMPLIANCE Social History Tobacco Use Types Packs/Day Years Used Date Smoking Tobacco: Never Smokeless Tobacco: Never Alcohol Use Standard Drinks/Week Comments No 0 (1 standard drink = 0.6 oz pur e alcohol) Comments No Sex and Gender Information Value Date Recorded Sex Assigned at Not on file Legal Sex Female 4:18 AM DRUM OPERATOR Gender Identity Not on file Sexual Orientation Not on file documented as of this encounter Plan of Treatment Not on file documented as of this encounter Visit Diagnoses Not on filedocumented in this encounter Additional Health Concerns Infection Onset Date Last Indicated Resolved Time Rule Out COVID-19 03/22/2020 03/22/2020 03/23/2020 8:06 PM CDT COVID-19 03/22/2020 03/22/2020 04/12/2020 11:4 0 PM CDT Rule Out COVID-19 02/07/2024 02/07/2024 02/07/2024 11:22 AM CDT documented as of this encounter Care Teams Sandwich Counter Attendant Relationship Specialty Start Date End Date Mariusz Luevano MD [address] [place] [address] PCP - General Internal Medicine 08/17/11 Kaleigh Cruz RN Nurse Coordinator Cardiology 07/31/14 02/21/15 Manuel Peterson MD Cardiology 07/31/14 07/22/17 Mary Oconnell RN Nurse Coordinator Neurology 12/06/14 07/22/17 Mariusz Luevano MD [address] [place] [address] Assigned PCP 03/13/20 01/31/21 Mecca Claudio MD [address] [place] [address] tractor operator helper 06/04/20 Baiorn Sorensen MD [address] [place] [address] Internal Medicine-Hematology & Oncology 06/24/20 Tona Suazo MD [address] [place] [address] Anesthesiology 07/03/20 Bairon Sorensen MD [address] [address] Assigned Pulmonology Provider 08/15/20 01/16/22 Charlotte Watkins MD [address] [address] Ophthalmology 01/27/21 Shannan Felton MD [address] [place] [address] Ophthalmology 01/30/21 Mariusz Luevano MD [address] [place] [address] Assigned PCP 02/01/21 03/18/21 Shannan Felton MD [facility] [address] [place] [address] Assigned Surgical Provider 03/01/21 08/27/22 Mariusz Luevano MD [address] [place] [address] Assigned PCP 03/19/21 05/07/21 Mariusz Luevano MD [address] [place] [address] Assigned PCP 05/08/21 06/14/24 Kylee Peace MD [address] [place] [address] Otolaryngology 12/01/21 Celia Cali MD [address] [place] [address] Endocrinology, Diabetes, and Metabolism 12/21/21 Celia Cali MD [address] [place] [address] Assigned Endocrinology Provider 02/14/22 08/05/23 Sharad Pham MD [address] [place] [address] [facility] [place] [address] Resident Internal Medicine 02/01/24 Sharad Pham MD [address] [place] [address] [facility] [place] [address] Assigned PCP 06/15/24 05/14/25 Jae Medley MD [address] [facility] [place] [address] Assigned PCP 05/15/25 documented as of this encounter
--- OUTSIDE RECORDS SUMMARY | 2025-08-08 10:41 | XMS_ITS | Encounter Summary ---
Author Organization [facility] Address [address] [place] [address] Care Team Providers Care Soap Tender Name Role Phone Mariusz Luevano MD Primary Care Provider Encounter Details Date Type Department Care Team (Late st Contact Info) Description 11/27/[address] 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
[2025-08-08 10:50] VITALS: BP 164/87; PULSE 80; RESP 18; TEMP 36.3; O2SAT 98
[2025-08-08 12:04] LABS: Hematocrit* 44.2 % (33.0-51.0); Hemoglobin* 15.0 gm/dL (12.0-16.0); Immature Granulocytes Abs Auto 0.04 K/uL (0.00-0.30); Immature Granulocytes Pct Auto 0.4 %; Lymphocytes Absolute Auto 3.37 K/uL (0.90-2.90); Mean Corpuscular HGB Conc 34 gm/dL (32-36); Mean Corpuscular Hemoglobin 32 pg (26-34); Mean Corpuscular Volume 93 fL (80-100); RDW Coefficient of Variation % 13.1 % (11.5-15.5); Red Blood Count* 4.74 m/uL (4.00-5.20); White Blood Count* 10.79 K/uL (4.50-11.00)
[2025-08-08 12:06] LABS: Slide Review Reflex No
[2025-08-08 12:13] LABS: Troponin, Point-of-Care* 0.01 ng/ml (0.01-0.04)
--- NOTE | 2025-08-08 12:13 | ED.BACK ---
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 She has pain throughout her body. States the pain goes from her toes all way up to her head and her fingertips. This pain is been going on for the past couple weeks but has been getting worse over the past 3 days. She states any movement causes pain and it is hard for to get out of bed when she lays down or sits down. Has never had this much pain before. Does not remember any recent heavy lifting or injuries. Denies urinary retention, urinary incontinence, saddle anesthesia, fevers, chills. She states she last saw a primary care provider 1 year ago and has only been diagnosed with hypertension. She has difficulty staying were the pain starts in the overall states it is everywhere. States she is having intermittent left-sided burning sensation in her chest and admits to diffuse abdominal pain. States this started the same time the rest of her body aches started. Denies any weakness, numbness, diarrhea, constipation, or shortness of breath. During our conversation the patient began to cry and states he does not know his pain is due to anxiety and depression as she has been taking care of her grandkids up until the beginning of June on the mother over drink is took them away and she has not seen them since June. She states this makes her very sick and. She is very tearful while talking about this. Related Data Home Medications ?Medication ?Instructions ?Recorded ?Confirmed lisinopril 5 mg tablet 5 mg PO DAILY 07/21/22 08/08/25 omeprazole 20 mg capsule,delayed 20 mg PO DAILY PRN 07/21/22 08/08/25 release amitriptyline 25 mg tablet 25 mg PO QPM 01/18/24 08/08/25 cholecalciferol (vitamin D3) 50 50 mcg PO DAILY 01/18/24 08/08/25 mcg (2,000 unit) tablet Previous Rx's ?Medication ?Instructions ?Recorded omeprazole 40 mg capsule,delayed 40 mg PO DAILY #14 caps 10/31/23 release acetaminophen 300 mg-codeine 30 mg 1 tab PO Q6H PRN pain #20 tabs 01/18/24 tablet amoxicillin 500 mg capsule 500 mg PO TID 10 days #21 caps 01/18/24 ketorolac 10 mg tablet 10 mg PO Q6H PRN pain #20 tabs 08/08/25 oxycodone 5 mg tablet 5 mg PO Q6H PRN pain #12 tabs 08/08/25 Allergies Allergy/AdvReac Type Severity Reaction Status Date / Time ibuprofen AdvReac Mild Verified 08/08/25 10:59 Review of Systems Status of ROS: Reports: 10 or more systems reviewed and unremarkable except as noted in History and below [facility] Medical History Closed fracture of left distal femur ?S72.402A - Unspecified fracture of lower end of left femur, initial encounter for closed fracture (ICD-10) Anxiety ?F41.9 - Anxiety disorder, unspecified (ICD-10) Tension type headache ?G44.209 - Tension-type headache, unspecified, not intractable (ICD-10) Moderate episode of recurrent major depressive disorder ?F33.1 - Major depressive disorder, recurrent, moderate (ICD-10) Myalgia ?M79.10 - Myalgia, unspecified site (ICD-10) Chronic pain syndrome ?G89.4 - Chronic pain syndrome (ICD-10) Elevated TSH ?R79.89 - Other specified abnormal findings of blood chemistry (ICD-10) Prediabetes ?R73.03 - Prediabetes (ICD-10) GERD (gastroesophageal reflux disease) ?K21.9 - Gastro-esophageal reflux disease without esophagitis (ICD-10) Hypertension ?I10 - Essential (primary) hypertension (ICD-10) Surgical History History of cholecystectomy ?Z90.49 - Acquired absence of other specified parts of digestive tract (ICD-10) History of salpingo-oophorectomy ?Z90.79 - Acquired absence of other genital organ(s) (ICD-10) ?Z90.721 - Acquired absence of ovaries, unilateral (ICD-10) Social History Smoking Status: Never smoker Do you use any of these nicotine containing products: None How often do you have a drink containing alcohol: never AUDIT-C Alcohol total score: 0 Non-prescribed substance use: denies use Exam Narrative: Exam Narrative: Const: Well-nourished, Well-developed, in mild distress, tearful by the end of the conversation Eyes: PERRL, no conjunctival injection, and symmetrical lids HENT: Atraumatic external nose and ears. Moist mucous membranes. Neck: Symmetric, trachea midline, No thyromegaly. CVS: RRR, No murmurs or gallops. Peripheral pulses 2+ and equal in all extremities RESP: Unlabored respiratory effort. Clear to auscultation bilaterally. GI: Nontender/Nondistended, No rebound or guarding. MSK:Extremities w/o deformity, Normal Active ROM, diffuse tenderness Skin: Warm, Dry. No rashes or lesions. Neuro: Normal Muscle tone, No focal neurological deficits. Psych: Awake, Alert, & Oriented x3. Appropriate mood and affect. Const: Vital Signs, click to edit/add: Vital Signs - 24 hr 08/08/25 10:50 Temperature 97.3 F L Pulse Rate [Right Pulse Oximeter] 80 Respiratory Rate 18 Blood Pressure [Ri ght Upper Arm] 164/87 H Pulse Oximetry 98 Oxygen Delivery Me thod Room Air Course Vital Signs Vital signs: Initial Vital Signs Temperature 97.3 F L 08/08/25 10:50 Temperature Source Temporal Artery Scan 08/08/25 10:50 Pulse Rate 80 08/08/25 10:50 Pulse Rhythm Regular 08/08/25 10:50 Pulse Strength 3+ Normal 08/08/25 10:50 Respiratory Rate 18 08/08/25 10:50 Blood Pressure 164/87 H 08/08/25 10:50 Blood Pressure Mean 112 H 08/08/25 10:50 Blood Pressure Position Sitting 08/08/25 10:50 Pulse Oximetry 98 08/08/25 10:50 Oxygen Delivery Method Room Air 08/08/25 10:50 Vital Signs Temperature 97.3 F L 08/08/25 10:50 Pulse Rate 80 08/08/25 10:50 Respiratory Rate 18 08/08/25 10:50 Blood Pressure 164/87 H 08/08/25 10:50 Pulse Oximetry 98 08/08/25 10:50 Oxygen Delivery Method Room Air 08/08/25 10:50 Temperature 97.3 F L 08/08/25 10:50 Pulse Rate 80 08/08/25 10:50 Respiratory Rate 18 08/08/25 10:50 Blood Pressure 164/87 H 08/08/25 10:50 Pulse Oximetry 98 08/08/25 10:50 Oxygen Delivery Method Room Air 08/08/25 10:50 MDM - Back Pain/Injury MDM Narrative Medical decision making narrative: Patient is a 65-year-old female presenting to emergency department for diffuse body pains. She hurts everywhere. She does states she has some intermittent left-sided burning chest pain so I will do an EKG and troponin for better evaluation. Do not believe imaging would be beneficial as this does seem very unlikely to be any intrathoracic problem as the pain is diffusely throughout her entire body. She also states she had abdominal pain but again a not think imaging of the abdomen which shows anything as the pain started at the same time as the rest of her full body pains. Will check ESR and CRP for signs of inflammatory causes such as polymyalgia rheumatic cough. Will also checks creatinine kinase possible signs of myositis. Lab work returned showing no acute concerning abnormalities. Shows no abnormalities as interpreted by myself. Troponin within limits. At this time I believe patient is safe for discharge. She states she does have a primary care provider that she follow up with Terry planning schedule appointment as soon she is discharged. will provide pain medication for the next few days Lab Data Labs: Lab Results 08/08/25 08/08/25 Range/Units 11:48 11:55 WBC 10.79 (4.50-11.00) K/uL RBC 4.74 (4.00-5.20) m/uL Hgb 15.0 (12.0-16.0) gm/dL Hct 44.2 (33.0-51.0) % MCV 93 (80-100) fL MCH 32 (26-34) pg MCHC 34 (32-36) gm/dL RDW Coeff of Farhana 13.1 (11.5-15.5) % Plt Count 321 (140-440) K/uL Neut % (Auto) 62.0 (42.0-72.0) % Lymph % (Auto) 31.2 (20-44) % [place] % (Auto) 5.7 (0.0-11.0) % Eos % (Auto) 0.4 (0.0-7.0) % Baso % (Auto) 0.3 (0.0-3.0) % Neut # (Auto) 6.70 (1.7-7.0) K/uL Lymph # (Auto) 3.37 H (0.90-2.90) K/uL [place] # (Auto) 0.60 (0.00-0.90) K/UL Eos # (Auto) 0.04 (0.00-0.50) K/uL Baso # (Auto) 0.03 (0.00-0.30) K/uL Abs Immat Gran (auto) 0.04 (0.00-0.30) K/uL Imm/Tot Granulo (auto) 0.4 % ESR 9 (2-20) mm/hr Sodium 132 L (135-149) mmol/L Potassium 4.3 (3.6-5.1) mmol/L Chloride 95 L (96-114) mmol/L Carbon Dioxide 28 (20-32) mmol/L Anion Gap 9 (7-15) mEq/L BUN 22 (7-30) mg/dL Creatinine 0.8 (0.5-1.5) mg/dL Estimated GFR 82 ml/min Glucose 108 (60-115) mg/dL Calcium 9.9 (8.4-10.6) mg/dL Magnesium 2.0 (1.5-2.6) mg/dL Total Creatine Kinase 63 (41-117) U/L C-Reactive Protein < 0.5 L (0.5-1.0) mg/dL Lipase 73 (23-300) U/L POC Troponin I 0.01 (0.01-0.04) ng/ml ECG Data Attestation: I personally reviewed and interpreted this ECG as follows: Prior ECG tracings: available for review Interpretation: Living. Normal sinus rhythm, rate 66 pain minute, normal intervals, normal axis, no ST or T-wave abnormalities. Appears similar previous EKG on file Discharge Plan Discharge Clinical Impression: Generalized body aches Patient Disposition: Home, Self-Care Condition: Stable Instructions: Musculoskeletal Pain (ED) Additional Instructions: Take tylenol as needed for pain. Use the Toradol if Tylenol is not helping. When using the Toradol do not take other NSAIDs, for example naproxen or ibuprofen. You can use Tylenol though as it is a different class of drugs. if that it not helping try using the Oxycodone. It does increase your fall risk so be careful. You will not be able to get further narcotics from this emergency department for this pain. Make sure to follow-up with her primary care provider. Prescriptions: New ketorolac 10 mg tablet 10 mg PO Q6H PRN (Reason: pain) Qty: 20 0RF Rx Instructions: maximum total duration of 5 days from all oral, intranasal, or parenteral formulations oxycodone 5 mg tablet 5 mg PO Q6H PRN (Reason: pain) Qty: 12 0RF No Action omeprazole 40 mg capsule,delayed release(DR/EC) 40 mg PO DAILY Qty: 14 0RF amitriptyline 25 mg tablet 25 mg PO QPM cholecalciferol (vitamin D3) 50 mcg (2,000 unit) tablet 50 mcg PO DAILY amoxicillin 500 mg capsule 500 mg PO TID 10 Days Qty: 21 0RF acetaminophen-codeine 300-30 mg tablet 1 tab PO Q6H PRN (Reason: pain) Qty: 20 0RF lisinopril 5 mg tablet 5 mg PO DAILY omeprazole 20 mg capsule,delayed release(DR/EC) 20 mg PO DAILY PRN Follow Up/Referrals: Provider,Not a Local [Primary Care Provider, Family Practice] Stand Alone Forms: [facility] Info Instructions
[2025-08-08 12:19] LABS: Chloride* 95 mmol/L (96-114); Sodium* 132 mmol/L (135-149)
[2025-08-08 12:20] LABS: Potassium* 4.3 mmol/L (3.6-5.1)
[2025-08-08 12:22] LABS: Blood Urea Nitrogen* 22 mg/dL (7-30); Creatine Kinase* 63 U/L (41-117); Creatinine* 0.8 mg/dL (0.5-1.5); Estimated Glomerular Filt Rate 82 ml/min
[2025-08-08 12:23] LABS: Anion Gap 9 mEq/L (7-15); Calcium* 9.9 mg/dL (8.4-10.6); Carbon Dioxide* 28 mmol/L (20-32); Glucose* 108 mg/dL (60-115)
[2025-08-08 12:52] LABS: Erythrocyte SedimentationRate* 9 mm/hr (2-20)
== END 2025-08-08 13:55 | disposition home or self-care (01) ==
PROVIDERS: Emergency Provider Student in an Organized Health Care Education/Training Program
DX: M79.10 Myalgia, unspecified site (principal); R07.89 Other chest pain
CPT/HCPCS: 36415; 80048; 82550; 83690; 83735; 84484; 85025; 85651; 86140; 93005; 99283; 99284; 99285

== ENCOUNTER 2025-09-24 09:58 | Emergency (ER) | payer OTHER, SELFPAY ==
[2025-09-24 10:05] VITALS: BP 162/94; PULSE 82; RESP 18; TEMP 36.8; O2SAT 97
--- OUTSIDE RECORDS SUMMARY | 2025-09-24 10:13 | XMS_ITS | Clinical Summary ---
Author Organization [facility] Address [address] [place] [address] Care Team Providers Care Health Safety Coordinator Name Role Phone Mariusz Luevano MD Primary [...] on file Legal Sex Female 8:37 PM LIFTER Gender Identity Not on file Sexual Orientation Not on file Obstetrics History Last Filed Vital Signs Vital Sign Reading Time Taken Comments Blood Pressure 172/89 12/06/2021 1:19 PM LIFTER Pulse 80 12/06/2021 1:19 PM LIFTER Temperature 36.3 C (97.4 F) 12/06/2021 1:19 PM LIFTER Respiratory Rate 20 12/06/2021 1:19 PM LIFTER Oxygen Saturation 98% 12/06/2021 1:19 PM LIFTER Inhaled Oxygen Concentration - - Weight 68.9 kg (152 lb) 12/06/2021 1:19 PM LIFTER Height 160 cm (5' 3) 12/06/2021 1:19 PM LIFTER Body Mass Index 26.93 12/06/2021 1:19 PM LIFTER Plan of Treatment Not on file Insurance [facility] Care Teams Health Safety Coordinator Relationship Specialty Start Date End Date Mariusz Luevano MD PCP - General Internal Medicine 12/06/21
--- OUTSIDE RECORDS SUMMARY | 2025-09-24 10:14 | XMS_ITS | Encounter Summary ---
Author Organization [facility] Address [address] [place] [address] Care Team Providers Care Internist Name Role Phone Mariusz Luevano MD Primary Care Provider [phone] Encounter Details Date Type Department Care Team (Late st Contact Info) Description 03/20/2013 Scanned History External to Transferred Record, Provider [place] Social History Tobacco Use Types Packs/Day Years Used Date Smoking Tobacco: Never Smokeless Tobacco: Never Alcohol Use Standard Drinks/Week Comments No 0 (1 standard drink = 0.6 oz pur e alcohol) Comments Unknown Sex and Gender Information Value Date Recorded Sex Assigned at Not on file 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
--- OUTSIDE RECORDS SUMMARY | 2025-09-24 10:14 | XMS_ITS | Encounter Summary ---
Author Organization [facility] [address] [place] [address] Care Team Providers Care Grinder Operator External Tool Name Role Phone Mariusz Luevano MD Primary Care Provider [phone] Encounter Details Date Type Department Care Team (Late st Contact Info) Description 12/07/2012 Correspondence [facility] [address] [place] [id number] Erika Weber APRN, CNP [address] [place] [id number] REFERRAL FORM Social History Tobacco Use Types Packs/Day Years Used Date Smoking Tobacco: Never Assessed Alcohol Use Standard Drinks/Week Comments No 0 (1 standard drink = 0.6 oz pur e alcohol) Comments Unknown Sex and Gender Information Value Date Recorded Sex Assigned at Not on file 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
--- OUTSIDE RECORDS SUMMARY | 2025-09-24 10:14 | XMS_ITS | Encounter Summary ---
Author Organization [facility] [address] [place] [address] Care Team Providers Care Sanitary Chemist Name Role Phone Mariusz Luevano MD Primary Care Provider [phone] Encounter Details Date Type Department Care Team (Late st Contact Info) Description 12/14/2012 Correspondence [facility] [address] [place] [address] Noe Jurado MD [address] [address] REFERRAL FORM Social History Tobacco Use Types Packs/Day Years Used Date Smoking Tobacco: Never Smokeless Tobacco: Never Alcohol Use Standard Drinks/Week Comments No 0 (1 standard drink = 0.6 oz pur e alcohol) Comments Unknown Sex and Gender Information Value Date Recorded Sex Assigned at Not on file 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
--- OUTSIDE RECORDS SUMMARY | 2025-09-24 10:14 | XMS_ITS | Clinical Summary ---
Author Organization [facility] Address [address] [place] [address]. [place] [address] Care Team Providers Care Case Loader Operator Name Role Phone Mariusz Luevano MD Primary Care Provider Mecca Claudio MD Unavailable [phone] Bairon Sorensen MD Unavailable Tona Suazo MD Unavailable [phone] Charlotte Watkins MD Unavailable [phone] Shannan Felton MD Unavailable Kylee Peace MD [...] refills, please schedule a follow-up appointment at [phone], annual appt due 90 tablet 5 Active [...] on file Legal Sex Female 4:18 AM CTE TEACHER Gender Identity Not on file Sexual [...] (1 of 2) 2010 PHQ-9 03/20/2019 12/21/2018 SALVADOR ASSESSMENT 02/08/2020 02/07/2019, 12/21/2018 MAMMO SCREENING 05/29/2021 05/29/2020, 01/23, 12/24/2013, Additional history exists PHQ-2 (once per calendar year) 2024 02/07/2024, 02/03/2022, 06/20/2020, Additional history exists FALL RISK ASSESSMENT 2025 COVID-19 VACCINE ( season) 2025 INFLUENZA VACCINE (#1) 2025 8, 11/07/2012, 12/01/2009, Additional history exists BMP 01/07/2026 01/07/2025, 10/24, 12/01/2021, Additional history exists MEDICARE ANNUAL WELLNESS VISIT 01/07/2026 01/07/2025, 07/17/2018, 02/11/2017 DTAP/TDAP/TD VACCINE (2 - Td or Tdap) [...] HEPATITIS C ANTIBODY Routine 10/29/2008 5:15 PM CTE TEACHER from Last 3 Months or Most Recently Relevant to Health Maintenance Results * (ABNORMAL) Lipid panel reflex to direct LDL Non-fasting (01/07/2025 11:02 AM CDT) Cholesterol 209(H) <200 mg/dL 01/07/2025 11:29 AM CDT [facility] Triglycerides 131 <150 mg/dL 01/07/2025 11:29 AM CDT [facility] Direct Measure HDL 52 >=50 mg/dL 01/07/2025 11:29 AM CDT [facility] LDL Cholesterol Calculated 131(H) <100 mg/dL 01/07/2025 11:29 AM CDT [facility] Non HDL Cholesterol 157(H) <130 mg/dL 01/07/2025 11:29 AM CDT [facility] Patient Fasting > 8hrs? Yes 01/07/2025 11:29 AM CDT [facility] Blood STRUCTURE OF LEFT UPPER LIMB / Unknown Venipuncture / Unknown 01/07/2025 11:02 AM CDT 01/07/2025 11:02 AM CDT Narrative [facility] - 01/07/2025 11:29 [...] 219 mg/dL Very High: >= 220 mg/dL Jae Medley MD LAB - BLOOD ORDERABL ES Final Result [facility] Clinics and Surgery Center [facility] [address] [facility] 1st [place] [address] * Comprehensive metabolic panel (BMP + Alb, Alk Phos, ALT, AST, Total. Bili, TP) (01/07/2025 11:02 AMCDT) Sodium 140 135 - 145 mmol/L 01/07/2025 11:29 AM CDT [facility] Potassium 4.2 3.4 - 5.3 mmol/L 01/07/2025 11:29 AM T [facility] Carbon Dioxide (CO2) 27 22 - 29 mmol/L 01/07/2025 11:29 AM CDT [facility] Anion Gap 11 7 - 15 mmol/L 01/07/2025 11:29 AM CDT [facility] Urea Nitrogen 17.0 8.0 - 23.0 mg/dL 01/07/2025 11:29 AM T [facility] Creatinine 0.76 0.51 - 0.95 mg/dL 01/07/2025 11:29 AM CDT [facility] GFR Estimate 87 >60 mL/min/1.7 3m2 01/07/2025 11:29 AM CDT [facility] Comment:eGFR calculated usin 2020 CKD-EPI equation. Calcium 9.8 8.8 - 10.4 mg/dL 01/07/2025 11:29 AM T [facility] Chloride 102 98 - 107 mmol/L 01/07/2025 11:29 AM T [facility] Glucose 98 70 - 99 mg/dL 01/07/2025 11:29 AM T [facility] Alkaline Phosphatase 88 40 - 150 U/L 01/07/2025 11:29 AM T [facility] AST 21 0 - 45 U/L 01/07/2025 11:29 AM CDT [facility] ALT 15 0 - 50 U/L 01/07/2025 11:29 AM CDT [facility] Protein Total 7.6 6.4 - 8.3 g/dL 01/07/2025 11:29 AM CDT [facility] Albumin 4.4 3.5 - 5.2 g/dL 01/07/2025 11:29 AM CDT [facility] Bilirubin Total 0.4 <=1.2 mg/dL 01/07/2025 11:29 AM CDT [facility] Patient Fasting > 8hrs? Yes 01/07/2025 11:29 AM CDT [facility] Blood STRUCTURE OF LEFT UPPER LIMB / Unknown Venipuncture / Unknown 01/07/2025 11:02 AM CDT 01/07/2025 11:02 AM CDT Jae Medley MD LAB - BLOOD ORDERABL ES Final Result [facility] Clinics and Surgery [facility] [address] [facility] 1st [place] [address] * COLONOSCOPY (02/27/2021 9:56 AM CDT) [facility] COLONOSCOPY Clinics and Surgery Center [address] [place] [address] [phone] Endoscopy Department Patient Name: Yolanda Tenorio Procedure Date: 02/27/2021 9:56 AM Date of : 1960 Admit Type: Outpatient Age: 60 Room: [facility] 5 Gender: Female Note Status: Finalized Attending MD: Jerel Luis , Pause for the Cause: Time out was completed. [...] Procedure: Pre-Anesthesia Assessment: - See H&P in [facility]. After obtaining informed consent, the colonoscope was passed under direct vision. Throughout the procedure, the patient's blood pressure, pulse, and oxygen saturations were monitored continuously. The Colonoscope was introduced through the anus and advanced to the terminal ileum. The colonoscopy was performed without difficulty. The patient tolerated the procedure well. The quality of the bowel preparation was evaluated using the BBPS ([place] Bowel Preparation Scale) with scores of: Right [...] LOU PRITCHETT MD us Mariusz Luevano MD IMG MAMMOGRAPHY ORDERABLES F inal Result * PAP imaged thin layer screen [[id number]] (08/06/2014 12:00 AM CDT) PAP NIL COPATH Copath Report Patient Name: YOLANDA ROBERTS MR#: [id number] Specimen #: [id number] Collected: 08/06/2014 Received: 08/07/2014 Reported: 08/08/2014 14:11 [...] by: Lesli Mccormick Processed and screened at [facility] CLINICAL HISTORY: Post Menopausal, Previous normal pap Date of Last Pap: 06/19/10, Papanicolaou Test Limitations: Cervical cytology is a screening test with limited sensitivity; regular screening is critical for cancer prevention; Pap tests are primarily effective for the diagnosis/preventi on of squamous cell carcinoma, not adenocarcinomas or other cancers. TESTING LAB LOCATION: [facility], [address] [address] COLLECTION SITE: Client: [facility] Location: ROBB (B) COPATH Cytologic material (specimen) 08/06/2014 08/07/2014 10:27 AM CDT us Olimpia Bland MD LAB - OPTIME CLINICAL SPE CIMEN Final Result COPATH * Hepatitis C antibody (10/29/2008 5:15 PM CTE TEACHER) Hepatitis C Antibody Negative NEG MISYS 10/29/2008 5:15 PM CTE TEACHER 10/29/2008 5:06 PM CTE TEACHER us Michele Kirk MD LAB - BLOOD ORDERABLES Final Result MISYS from Last 3 Months or Most Recently Relevant to Health Maintenance Insurance [facility] MEDICARE [place] Care Teams Case Loader Operator Relationship Specialty Start Date End Date Mariusz Luevano MD [address] [place] [address] [address] [place], [place] [phone] PCP - General Internal Medicine 08/17/11 Mecca Claudio MD [address] [facility] [address] [place], [place] [address] it security consulting director 06/04/20 Bairon Sorensen MD [address] [place] [address] [phone] Internal Medicine-Hematology & Oncology 06/24/20 Tona Suazo MD [address] [place] [address] Anesthesiology 07/03/20 Charlotte Watkins MD [address] [place] [address] [phone] Ophthalmology 01/27/21 Shannan Felton MD [address] [place] [address] [phone] Ophthalmology 01/30/21 Kylee Peace MD [address] [place] [address] Otolaryngology 12/01/21 Celia Cali MD [address] [place] [address] Endocrinology, Diabetes, and Metabolism 12/21/21 Sharad Pham MD [address] [place] [address] [facility]- 4th [place], [place] [address] Resident Internal Medicine 02/01/24 Jae Medley MD [address] [place] [address] Primary Care Clinic- 4th floor [place], [place] [phone] Assigned PCP 05/15/25
--- OUTSIDE RECORDS SUMMARY | 2025-09-24 10:14 | XMS_ITS | Encounter Summary ---
Author Organization [facility] Address [address] [place] [address] Care Team Providers Care Baseball Scout Name Role Phone Mariusz Luevano MD Primary Care Provider [phone] Encounter Details Date Type Department Care Team (Late st Contact Info) Description 01/29/2013 Home Care Visit [facility] [address] [place] [address], [address] [place] [address] Fiona Mullins I Social History Tobacco Use Types Packs/Day Years Used Date Smoking Tobacco: Never Smokeless Tobacco: Never Alcohol Use Standard Drinks/Week Comments No 0 (1 standard drink = 0.6 oz pur e alcohol) Comments Unknown Sex and Gender Information Value Date Recorded Sex Assigned at Not on file Legal Sex Female 9:02 AM CUSTOMER CONTACT SPECIALIST Gender Identity Not on file Sexual Orientation [...] to assist. Pt was previously working at [employer] as is her . A: Pt reports [...] dgtr was instructed in vendor options and [employer] program. R: Cont OT for ADL, IADL instruction. Fiona Mullins OTR/L documented in this encounter Plan of Treatment Not on file documented as of this encounter Visit Diagnoses Not on filedocumented in this encounter Care Teams Baseball Scout Relationship Specialty Start Date End Date Mariusz Luevano MD PCP - General Internal Medicine 05/10/25 documented as of this encounter
--- OUTSIDE RECORDS SUMMARY | 2025-09-24 10:14 | XMS_ITS | Encounter Summary ---
Author Organization [facility] Address [address] [place] [address] Care Team Providers Care Enterprise Business Architect Name Role Phone Mariusz Luevano MD Primary Care Provider [phone] Encounter Details Date Type Department Care Team (Late st Contact Info) Description 02/15/2013 Home [facility] [address] [place] [address], [address] [place] [address] Fiona Mullins I Social History Tobacco Use Types Packs/Day Years Used Date Smoking Tobacco: Never Smokeless Tobacco: Never Alcohol Use Standard Drinks/Week Comments No 0 (1 standard drink = 0.6 oz pur e alcohol) Comments Unknown Sex and Gender Information Value Date Recorded Sex Assigned at Not on file Legal Sex Female 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 [facility] on second visit attempt A: Per APPRENTICESHIP TRAINING REPRESENTATIVE pt is being seen in outpt tx R: Discharge from OT. Fiona Mullins OTR/L documented in this encounter Plan of Treatment Not on file documented as of this encounter Visit Diagnoses Not on filedocumented in this encounter Care Teams Enterprise Business Architect Relationship Specialty Start Date End Date Mariusz Luevano MD PCP - General Internal Medicine 05/10/25 documented as of this encounter
--- OUTSIDE RECORDS SUMMARY | 2025-09-24 10:14 | XMS_ITS | Encounter Summary ---
Author Organization [facility] [address] [place] [address] Care Team Providers Care Fixed Wing Aircraft Flight Engineer Name Role Phone Mariusz Luevano MD Primary Care Provider [phone] Encounter Details Date Type Department Care Team (Late st Contact Info) Description 01/16/2013 Correspondence [facility] [address] [place] [address] Noe Jurado MD [address] [address] REFERRAL FORM Social History Tobacco Use Types Packs/Day Years Used Date Smoking Tobacco: Never Smokeless Tobacco: Never Alcohol Use Standard Drinks/Week Comments No 0 (1 standard drink = 0.6 oz pur e alcohol) Comments Unknown Sex and Gender Information Value Date Recorded Sex Assigned at Not on file Legal Sex Female 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
--- OUTSIDE RECORDS SUMMARY | 2025-09-24 10:14 | XMS_ITS | Encounter Summary ---
Author Organization [facility] [address] [place] [address] Care Team Providers Care Metal Sorter Name Role Phone Mariusz Luevano MD Primary Care Provider [phone] Encounter Details Date Type Department Care Team (Late st Contact Info) Description 12/21/2012 Correspondence [facility] [address] [place] [address] Noe Jurado MD [address] [address] REFERRAL FORM Social History Tobacco Use Types Packs/Day Years Used Date Smoking Tobacco: Never Smokeless Tobacco: Never Alcohol Use Standard Drinks/Week Comments No 0 (1 standard drink = 0.6 oz pur e alcohol) Comments Unknown Sex and Gender Information Value Date Recorded Sex Assigned at Not on file Legal Sex Female 9:02 AM MANAGER NICU Gender Identity Not on file Sexual Orientation Not on file documented as of this encounter Progress Notes * Noe Jurado MD - 12/21/2012 12:00 AM CST GER NICU documented in this encounter Plan of Treatment Not on file documented as of this encounter Visit Diagnoses Not on filedocumented in this encounter Care Teams Metal Sorter Relationship Specialty Start Date End Date Mariusz Luevano MD PCP - General Internal Medicine 05/10/25 documented as of this encounter
--- OUTSIDE RECORDS SUMMARY | 2025-09-24 10:14 | XMS_ITS | Encounter Summary ---
Author Organization [facility] Address [address] [place] [address] Care Team Providers Care Music Industry Internship Name Role Phone Mariusz Luevano MD Primary Care Provider + [phone] Encounter Details Date Type Department Care Team (Late st Contact Info) Description 02/15/2013 Home Care, [facility] [address] [place] [address], [address] [place] [address] Lesa Arizmendi RN [address] [place] [address] [phone] Social History Tobacco Use Types Packs/Day Years Used Date Smoking Tobacco: Never Smokeless Tobacco: Never Alcohol Use Standard Drinks/Week Comments No 0 (1 standard drink = 0.6 oz pur e alcohol) Comments Unknown Sex and Gender Information Value Date Recorded Sex Assigned at Not on file Legal Sex Female 9:02 AM LEGAL RESEARCHER Gender Identity Not on file Sexual Orientation [...] client today with the help of the truck washer from the language line, and discussed this issue with the client and she completely understands and agrees that she no longer needs services. R - Discharge from SN services. JFoxRN documented in this encounter Plan of Treatment Not on file documented as of this encounter Visit Diagnoses Not on filedocumented in this encounter Care Teams Music Industry Internship Relationship Specialty Start Date End Date Mariusz Luevano MD PCP - General Internal Medicine 05/10/25 documented as of this encounter
--- OUTSIDE RECORDS SUMMARY | 2025-09-24 10:14 | XMS_ITS | Encounter Summary ---
Author Organization [facility] Address [address] [place] [address]. [place] [address] Care Team Providers Care Sample Cutter Name Role Phone Mariusz Luevano MD Primary Care Provider [phone] Mecca Claudio MD Unavailable Bairon Sorensen MD Unavailable Tona Suazo MD Unavailable [phone] Charlotte Watkins MD Unavailable [phone] Shannan Felton MD Unavailable Kylee Paece MD Unavailable Celia Cali MD Unavailable Sharad Pham MD Unavailable Sharad Pham MD Unavailable Jae Medley MD Unavailable [phone] Encounter Details Date Type Department Care Team (Late st Contact Info) Description 04/01/2025 Telephone [facility] Internal Medicine [address] [address] Mariusz Luevano MD [address] [place] [address] Social History Tobacco Use Types Packs/Day [...] on file Legal Sex Female 4:18 AM SEAM STAY STITCHER Gender Identity Not on file Sexual Orientation [...] Total Score: 9 12/21/19 19 9:55 AM SEAM STAY STITCHER documented as of this encounter Care Teams Sample Cutter Relationship Specialty Start Date End Date Mariusz Luevano MD [address] [place] [address] [phone] PCP - General Internal Medicine 08/17/11 Mecca Claudio MD [address] [facility] [address] [place] [address] blender snuff 06/04/20 Bairon Sorensen MD [address] [place] [address] [phone] Internal Medicine-Hematology & Oncology 06/24/20 Tona Suazo MD [address] [place] [address] [phone] Anesthesiology 07/03/20 Charlotte Watkins MD [address] [place] [address] [phone] Ophthalmology 01/27/21 Shannan Felton MD [address] [place] [address] [phone] Ophthalmology 01/30/21 Kylee Peace MD [address] [place] [address] 294175 Otolaryngology 12/01/21 Celia Cali MD [address] [place] [address] [phone] Endocrinology, Diabetes, and Metabolism 12/21/21 Sharad Pham MD [address] [place] [address] Primary Care Clinic- [address] [place] [address] [phone] Resident Internal Medicine 02/01/24 Sharad Pham MD [address] [place] [address] Primary Care Clinic- [address] [place] [address] [phone] Assigned PCP 06/15/24 05/14/25 Jae Medley MD [address] [place] [address] Primary Care Clinic- [address] [place] [address] [phone] Assigned PCP 05/15/25 documented as of this encounter
--- OUTSIDE RECORDS SUMMARY | 2025-09-24 10:14 | XMS_ITS | Clinical Summary ---
Author Organization [facility] Address [address] [place] [address] Care Team Providers Care Product Safety Expert Name Role Phone Mariusz Luevano MD Primary Care Provider + [phone] Source Comments You are receiving this document [...] for each transition of care or referral. [facility] Allergies Active Allergy Reactions Criticality Noted Date [...] 11/07/2012, 0,09/13/2008,2006 Influenza IIV4 (Quadrivalent ) 0.5mL (43113) 08/07/2018 TB Skin Test (PPD) 01/01/2008 Tdap [...] on file Legal Sex Female 9:02 AM ADDICTION NURSE Gender Identity Not on file Sexual Orientation Not on file Occupation Industry Job Start Date Job End Date not working Not on file Not on file Not on file Last Filed Vital Signs Vital Sign Reading Time Taken Comments Blood Pressure 138/68 09/04/2018 11:25 AM ADDICTION NURSE Pulse 58 09/04/2018 11:25 AM ADDICTION NURSE Temperature 37 C (98.6 F) 07/11/2018 11:30 AM CDT Respiratory Rate 18 07/11/2018 11:30 AM CDT Oxygen Saturation 97% 07/11/2018 4:28 PM CDT Inhaled Oxygen Concentration - - Weight 70.8 kg (156 lb) 09/04/2018 11:25 AM ADDICTION NURSE Height 148.6 cm (4' 10.5) 07/17/2018 10:32 [...] CDT FINAL GYNECOLOGICAL CYTOLOGY REPORT Pathology #: [id number] Date Obtained: 07/17/2018 Date Received: 07/18/2018 INTERPRETATION/RESULTS: [...] and false-negative reports may occur. [place] [address] us Clair Dow MD LAB_1 Final Resul t Performing Organization Address [facility] de Phone Number [employer] [address] [place], [place] [address] * Lipid Panel and Direct LDL(If Needed) [...] - 07/17/2018 4:58 PM CDT Performed at [facility] [address] [place] [address] CLIA number [id number] us Clair Dow MD LAB_1 Final Resul t Performing Organization Address [facility] de Phone Number [employer] [address] [place] [address] * (ABNORMAL) Hgb A1c (07/17/2018 11:51 AM CDT) HGB A1C 5.8(H) 4.0 - 5.6 % PN SOFT 07/17/2018 11:5 1 AM CDT 07/17/2018 3:52 PM CDT Narrative PN SOFT - 07/17/2018 10:41 PM CDT Performed at [facility], [address] [place] [address] CLIA number [id number] us Clair Dow MD LAB_1 Final Resul t [facility] [address] [place] [address] from Last 3 Months or Most Recently Relevant to Health Maintenance Insurance [facility] Advance Directives * Full Code (Latest Code Status on File) Date Activated Date Inactivated Comments 11/27/2012 2:34 PM 12/01/2012 7:45 PM Care Teams Product Safety Expert Relationship Specialty Start Date End Date Mariusz Luevano MD PCP - General Internal Medicine 05/10/25
--- OUTSIDE RECORDS SUMMARY | 2025-09-24 10:14 | XMS_ITS | Encounter Summary ---
Author Organization [facility] Address [address] [place] [address] Care Team Providers Care Prize Coordinator Name Role Phone Mariusz Luevano MD Primary Care Provider Encounter Details Date Type Department Care Team (Late st Contact Info) Description 11/27/2012 Correspondence [facility] Radiology [address] [place] [address] Radiology, Provider MRI SAFETY SHEET AND COMPATIBILITY FORM Social History Tobacco Use Types Packs/Day Years Used Date Smoking Tobacco: Never Assessed Comments Unknown Sex and Gender Information Value Date Recorded Sex Assigned at Not on file Legal Sex Female 9:02 AM CITY MAINTENANCE MANAGER Gender Identity Not on file Sexual Orientation Not on file documented as of this encounter Progress Notes * RADIOLOGY, PROVIDER - 11/27/2012 12:00 AM CST MAINTENANCE MANAGER documented in this encounter Plan of Treatment Not on file documented as of this encounter Visit Diagnoses Not on filedocumented in this encounter Care Teams Prize Coordinator Relationship Specialty Start Date End Date Mariusz Luevano MD PCP - General Internal Medicine 05/10/25 documented as of this encounter
--- OUTSIDE RECORDS SUMMARY | 2025-09-24 10:14 | XMS_ITS | Encounter Summary ---
Author Organization [facility] Address [address] [place] [address] Care Team Providers Care Parking Meter Mechanic Name Role Phone Mariusz Luevano MD Primary Care Provider + [phone] Encounter Details Date Type Department Care Team (Late st Contact Info) Description 01/28/2013 Home [facility] Visit [facility] [address] [place] [address], [address] [place] [address] Evelyn Wheeler Social History Tobacco Use Types Packs/Day Years Used Date Smoking Tobacco: Never Smokeless Tobacco: Never Alcohol Use Standard Drinks/Week Comments No 0 (1 standard drink = 0.6 oz pur e alcohol) Comments Unknown Sex and Gender Information Value Date Recorded Sex Assigned at Not on file Legal Sex Female 9:02 AM SUPERVISOR/PORT DIRECTOR Gender Identity Not on file Sexual Orientation Not on file documented as of this encounter Progress Notes * Evelyn Wheeler - 01/28/2013 5:10 PM CDT S: PT evaluation summary. B: Clmatthew lives with her spouse in a multi-level [...] on filedocumented in this encounter Care Teams Parking Meter Mechanic Relationship Specialty Start Date End Date Mariusz Luevano MD PCP - General Internal Medicine 05/10/25 documented as of this encounter
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
--- OUTSIDE RECORDS SUMMARY | 2025-09-24 10:14 | XMS_ITS | Encounter Summary ---
Author Organization [facility] Address [facility] [place] [address] Care Team Providers Care Radio Station Audio Engineer Name Role Phone Mariusz Luevano MD Primary Care Provider Kaleigh Cruz RN Unavailable Unavail able Manuel Peterson MD Unavailable [phone] Mary Oconnell RN Unavailable [phone] Mariusz Luevano MD Unavailable Mecca Claudio MD Unavailable Bairon Sorensen MD Unavailable Tona Suazo MD Unavailable [phone] Bairon Sorensen MD Unavailable [phone] Charlotte Watkins MD Unavailable Shannan Felton MD Unavailable Mariusz Luevano MD Unavailable Shannan Felton MD Unavailable Mariusz Luevano MD Unavailable Mariusz Luevano MD Unavailable Kylee Peace MD Unavailable Celia Cali MD Unavailable Celia Cali MD Unavailable Sharad Pham MD Unavailable Sharad Pham MD Unavailable Jae Medley MD Unavailable + [phone] Encounter Details Date Type Department Care Team (Late st Contact Info) Description 03/13/2013 PRE VISIT [facility] 1st Floor, Clinic [address] [place] [phone] Estela Hines, MOLD FILLER AND DRAINER Social History Tobacco Use Types Packs/Day Years Used Date Smoking Tobacco: Never Smokeless Tobacco: Never Alcohol Use Standard Drinks/Week Comments No 0 (1 standard drink = 0.6 oz pur e alcohol) Comments No Sex and Gender Information Value Date Recorded Sex Assigned at Not on file Legal Sex Female 4:18 AM POPCORN MACHINE OPERATOR Gender Identity Not on file [...] documented as of this encounter Care Teams Radio Station Audio Engineer Relationship Specialty Start Date End Date Mariusz Luevano MD [address] [place] [id number] PCP - General Internal Medicine 08/17/11 Kaleigh Cruz RN Nurse Coordinator Cardiology 07/31/14 02/21/15 Manuel Peterson MD Cardiology 07/31/14 07/22/17 Mary Oconnell RN Nurse Coordinator Neurology 12/06/14 07/22/17 Mariusz Luevano MD [address] [place] [address] Assigned PCP 03/13/20 01/31/21 Mecca Claudio MD [address] [place] [address] cook fruit 06/04/20 Bairon Sorensen MD [address] [place] [address] Internal Medicine-Hematology & Oncology 06/24/20 Tona Suazo MD [address] [place] [address] Anesthesiology 07/03/20 Bairon Sorensen MD [address] [address] Assigned Pulmonology Provider 08/15/20 01/16/22 Charlotte Watkins MD [address] [address] Ophthalmology 01/27/21 Shannan Felton MD [address] [place] [address] Ophthalmology 01/30/21 Mariusz Luevano MD [address] [place] [address] Assigned PCP 02/01/21 03/18/21 Shannan Felton MD [facility] [address] [place] [address] Assigned Surgical Provider 03/01/21 08/27/22 Mariusz Luevano MD [address] [place] [address] Assigned PCP 03/19/21 05/07/21 Mariusz Luevano MD [address] [place] [address] Assigned PCP 05/08/21 06/14/24 Kylee Peace MD [address] [place] [address] Otolaryngology 12/01/21 Celia Cali MD [address] [place] [address] Endocrinology, Diabetes, and Metabolism 12/21/21 Celia Cali MD [address] [place] [address] Assigned Endocrinology Provider 02/14/22 08/05/23 Sharad Pham MD [address] [place] [address] [facility] [address] [place] [address] Resident Internal Medicine 02/01/24 Sharad Pham MD [address] [place] [address] [facility] [address] [place] [address] Assigned PCP 06/15/24 05/14/25 Jae Medley MD [address] [facility] [place] [address] Assigned PCP 05/15/25 documented as of this encounter
--- NOTE | 2025-09-24 10:26 | ED.GENADULT ---
HPI - General Adult General Chief complaint: Extremity Pain/Injury, Lower Stated complaint: R leg pain Time Seen by Provider: 09/24/25 10:12 History of Present Illness HPI narrative: This 65-year-old female comes in reporting severe low back pain radiating down her whole right leg. She states that she began having pain more than a month ago and was seen here with more diffuse pain complaints about a month ago. Labs and studies at that time were inconclusive regarding the cause for the pain. She did have a follow-up appointment with a chiropractor but this did not help. She did get prescribe some gabapentin which she took and thinks that may have helped her little bit but last night she was unable to sleep due to the severe pain. She does not report any injury event that triggered these symptoms. She states that she was ambulating down some stairs a few days ago and the pain was so intense that she lost strength and did fall without any injury. Related Data Home Medications ?Medication ?Instructions ?Recorded ?Confirmed lisinopril 5 mg tablet 5 mg PO DAILY 07/21/22 09/24/25 omeprazole 20 mg capsule,delayed 20 mg PO DAILY PRN 07/21/22 08/08/25 release amitriptyline 25 mg tablet 25 mg PO QPM 01/18/24 08/08/25 cholecalciferol (vitamin D3) 50 50 mcg PO DAILY 01/18/24 08/08/25 mcg (2,000 unit) tablet Previous Rx's ?Medication ?Instructions ?Recorded omeprazole 40 mg capsule,delayed 40 mg PO DAILY #14 caps 10/31/23 release acetaminophen 300 mg-codeine 30 mg 1 tab PO Q6H PRN pain #20 tabs 01/18/24 tablet amoxicillin 500 mg capsule 500 mg PO TID 10 days #21 caps 01/18/24 ketorolac 10 mg tablet 10 mg PO Q6H PRN pain #20 tabs 08/08/25 oxycodone 5 mg tablet 5 mg PO Q6H PRN pain #12 tabs 08/08/25 cyclobenzaprine 10 mg tablet 10 mg PO TID #15 tabs 09/24/25 hydrocodone 5 mg-acetaminophen 325 1 tab PO Q4-6H PRN pain #20 tabs 09/24/25 mg tablet ketorolac 10 mg tablet 10 mg PO TID 5 days #15 tabs 09/24/25 methylprednisolone 4 mg tablets in See Rx Instructions PO .COMPLEX 09/24/25 a dose pack (Medrol (Harsha)) #21 ea Allergies Allergy/AdvReac Type Severity Reaction Status Date / Time ibuprofen AdvReac Mild Verified 09/24/25 10:10 Review of Systems Status of ROS: Reports: 10 or more systems reviewed and unremarkable except as noted in History and below Narrative: Constitutional: No fevers, no weight gain or loss. Eyes: No discharge. No vision changes. HENT: No congestion, no sore throat, no ear pain. Cardiovascular: No chest pain, no palpitations. Respiratory: No shortness of breath, no wheezes, no cough. Gastrointestinal: No abdominal pain, no vomiting, no diarrhea. Genitourinary: No dysuria, no hematuria. Musculoskeletal: Normal range of motion. Low back pain radiating down the right leg as described above. Skin: No rashes, no pruritis. Neurological: No dizziness, weakness, sensory change, speech change. Endo/Heme/Allergies: No bruising or bleeding. No polydipsia. Pysch: no suicidality, no anxiety, no insomnia. All other systems reviewed and are negative. [facility] Medical History Closed fracture of left distal femur ?S72.402A - Unspecified fracture of lower end of left femur, initial encounter for closed fracture (ICD-10) Anxiety ?F41.9 - Anxiety disorder, unspecified (ICD-10) Tension type headache ?G44.209 - Tension-type headache, unspecified, not intractable (ICD-10) Moderate episode of recurrent major depressive disorder ?F33.1 - Major depressive disorder, recurrent, moderate (ICD-10) Myalgia ?M79.10 - Myalgia, unspecified site (ICD-10) Chronic pain syndrome ?G89.4 - Chronic pain syndrome (ICD-10) Elevated TSH ?R79.89 - Other specified abnormal findings of blood chemistry (ICD-10) Prediabetes ?R73.03 - Prediabetes (ICD-10) GERD (gastroesophageal reflux disease) ?K21.9 - Gastro-esophageal reflux disease without esophagitis (ICD-10) Hypertension ?I10 - Essential (primary) hypertension (ICD-10) Surgical History History of cholecystectomy ?Z90.49 - Acquired absence of other specified parts of digestive tract (ICD-10) History of salpingo-oophorectomy ?Z90.79 - Acquired absence of other genital organ(s) (ICD-10) ?Z90.721 - Acquired absence of ovaries, unilateral (ICD-10) Social History Smoking Status: Never smoker Do you use any of these nicotine containing products: None How often do you have a drink containing alcohol: never AUDIT-C Alcohol total score: 0 Non-prescribed substance use: denies use Exam Narrative: Exam Narrative: Constitutional: Well-developed, well-nourished, no acute distress. HEENT: Normocephalic, atraumatic. Neck: Normal range of motion. Nontender. Supple. Heart: Intact distal pulses. Lungs: No chest discomfort. No wheezes, rhonchi, or rales. Abdomen: Nontender. Back: Normal range of motion. Pain in the low back radiating down the whole right leg typical of a lumbar radiculopathy. Extremities: Normal range of motion. No injury. Skin: Intact. No rash. Warm. No erythema or pallor. Neurologic: No altered sensation. No weakness. Alert and oriented. Psychiatric: No suicidality. No anxiety or depression. No insomnia. Nursing notes and vitals signs are reviewed. Const: Vital Signs, click to edit/add: Vital Signs - 24 hr 09/24/25 10:05 Temperature 98.2 F Pulse Rate [Pulse Oximeter] 82 Respiratory Rate 18 Blood Pressure [Ri ght Upper Arm] 162/94 H Pulse Oximetry 97 Oxygen Delivery Me thod Room Air Course Vital Signs Vital signs: Initial Vital Signs Temperature 98.2 F 09/24/25 10:05 Temperature Source Temporal Artery Scan 09/24/25 10:05 Pulse Rate 82 09/24/25 10:05 Respiratory Rate 18 09/24/25 10:05 Blood Pressure 162/94 H 09/24/25 10:05 Blood Pressure Mean 116 H 09/24/25 10:05 Blood Pressure Position Sitting 09/24/25 10:05 Pulse Oximetry 97 09/24/25 10:05 Oxygen Delivery Method Room Air 09/24/25 10:05 Vital Signs Temperature 98.2 F 09/24/25 10:05 Pulse Rate 82 09/24/25 10:05 Respiratory Rate 18 09/24/25 10:05 Blood Pressure 162/94 H 09/24/25 10:05 Pulse Oximetry 97 09/24/25 10:05 Oxygen Delivery Method Room Air 09/24/25 10:05 Temperature 98.2 F 09/24/25 10:05 Pulse Rate 82 09/24/25 10:05 Respiratory Rate 18 09/24/25 10:05 Blood Pressure 162/94 H 09/24/25 10:05 Pulse Oximetry 97 09/24/25 10:05 Oxygen Delivery Method Room Air 09/24/25 10:05 Medications Administered Medications: Discontinued Medications Generic Name Dose Route Start Last Admin Trade Name Ernesto PRN Reason Stop Dose Admin Dexamethasone 10 mg 09/24/25 10:25 09/24/25 10:44 Dexamethasone 10 Mg/Ml Inj PO 09/24/25 10:26 10 mg ONCE ONE Administration Morphine Sulfate 10 mg 09/24/25 10:25 09/24/25 10:44 Morphine 10 Mg/Ml Inj IM 09/24/25 10:26 10 mg ONCE ONE Administration Medical Decision Making MDM Narrative Medical decision making narrative: This patient comes in with symptoms typical of a lumbar radiculopathy. She does not return describe any injury event to trigger these symptoms and they have worsened over the past month. She has been taking gabapentin without much relief. She states that she was unable to sleep last night because of the intense pain. She is able to ambulate but states that it is difficult because of the pain down her right leg. She does not report any saddle anesthesia or urinary or bowel changes. The patient received an intramuscular injection of morphine 10 mg and an oral dose of dexamethasone 10 mg. This brought relief to her symptoms. She is okay to be discharged home and is encouraged to follow-up with the spine clinic or [facility]. I did provide prescriptions for Toradol, [place], Medrol Dosepak, and Flexeril. She has gabapentin that she can continue to take also if desired. Discharge Plan Discharge Clinical Impression: Acute lumbar radiculopathy Patient Disposition: Home, Self-Care Condition: Improved Additional Instructions: Take medications as needed and directed. Follow up with spine clinic or [facility] for ongoing management. Spine clinic can be contacted by dialing [phone]. Prescriptions: New cyclobenzaprine 10 mg tablet 10 mg PO TID Qty: 15 0RF hydrocodone-acetaminophen 5-325 mg tablet 1 tab PO Q4-6H PRN (Reason: pain) Qty: 20 0RF ketorolac 10 mg tablet 10 mg PO TID 5 Days Qty: 15 0RF methylprednisolone [Medrol (Harsha)] 4 mg tablets,dose pack See Rx Instructions .ROUTE .COMPLEX Qty: 21 0RF Rx Instructions: orally per package directions No Action omeprazole 40 mg capsule,delayed release(DR/EC) 40 mg PO DAILY Qty: 14 0RF amitriptyline 25 mg tablet 25 mg PO QPM cholecalciferol (vitamin D3) 50 mcg (2,000 unit) tablet 50 mcg PO DAILY amoxicillin 500 mg capsule 500 mg PO TID 10 Days Qty: 21 0RF acetaminophen-codeine 300-30 mg tablet 1 tab PO Q6H PRN (Reason: pain) Qty: 20 0RF ketorolac 10 mg tablet 10 mg PO Q6H PRN (Reason: pain) Qty: 20 0RF Rx Instructions: maximum total duration of 5 days from all oral, intranasal, or parenteral formulations oxycodone 5 mg tablet 5 mg PO Q6H PRN (Reason: pain) Qty: 12 0RF lisinopril 5 mg tablet 5 mg PO DAILY omeprazole 20 mg capsule,delayed release(DR/EC) 20 mg PO DAILY PRN Follow Up/Referrals: Provider,Not a Local [Primary Care Provider, Family Practice] Stand Alone Forms: [facility] Inst[facility]
== END 2025-09-24 11:35 | disposition home or self-care (01) ==
PROVIDERS: Emergency Provider Emergency Medicine Emergency Medical Services
DX: M54.16 Radiculopathy, lumbar region (principal)
CPT/HCPCS: 96372; 99283; 99284; J1100; J2270

== ENCOUNTER 2025-10-08 10:05 | Outpatient (CLI) | payer OTHER, MEDICARE, SELFPAY ==
--- NOTE | 2025-10-08 10:15 | CRLHL7_ITS ---
For Patients: As a result of the Century Cures Act, medical imaging exams and procedure reports are released immediately into your electronic medical record. You may view this report before your referring provider. If you have questions, please contact your health care provider. Indication : Radiculopathy. Comparison: Radiograph 09/26/2025. Technique: Sagittal T1, T2, and STIR sequences. Axial T1 and T2 weighted sequences. FINDINGS: Assuming 5 lumbar-type throughout an designating the last rib-bearing vertebral body as seen on the previous radiograph is T12, lumbosacral segment is designated S1 and is lumbarized. Normal conus terminates at L2. T12-L1 L1-2 L2-3: No spinal canal neural foraminal narrowing. L3-4: Annular bulge. No narrowing of spinal canal. No neural foraminal narrowing. L4-5: Mild disc degeneration posterior disc herniation. Flattening of ventral thecal sac. No narrowing of spinal canal. No neural foraminal narrowing. L5-S1: Disc degeneration posterior disc bulge. No narrowing of spinal canal. No neural foraminal narrowing. No spinal canal or neural foraminal narrowing at the remaining levels. Normal visualized SI joints. Normal paraspinal soft tissues. IMPRESSION: 1. Transitional lumbar anatomy. Lumbosacral segment is designated S1 is lumbarized. 2. Normal alignment. No fractures 3. At L4-5, mild disc degeneration posterior disc herniation. No spinal canal or neural foramina name. 4. At L5-S1, disc degeneration posterior disc bulge. No spinal canal or neural foraminal narrowing. Dictated by Arcadio Dtuton MD @ 10/08/2025 1:29:05 PM (Electronically Signed)
== END 2025-10-08 10:06 | disposition home or self-care (01) ==
LOC: MRI 10:10
PROVIDERS: PCP Family Medicine; Visit Provider Family Medicine
DX: M54.16 Radiculopathy, lumbar region (principal); M51.360 Other intervertebral disc degeneration, lumbar region with discogenic back pain only; M51.27 Other intervertebral disc displacement, lumbosacral region; Q76.49 Other congenital malformations of spine, not associated with scoliosis
CPT/HCPCS: 72148; T1013